=== PATIENT | male | born 1975 | race Caucasian/White ===

== ENCOUNTER 2021-07-07 18:49 | Emergency (ER) | payer MEDICAID, SELFPAY ==
--- NOTE | ~2021-07-07 | XR_ITS ---
EXAMINATION: XR SHOULDER, RIGHT CLINICAL INFORMATION: Pain COMPARISON: None TECHNIQUE: AP external rotation, Grashey, scapular Y, and axillary views of the right shoulder. FINDINGS: Bone alignment is normal. No fracture or dislocation is seen. The glenohumeral joint is normal. There is mild arthritis at the acromioclavicular joint. Soft tissues are unremarkable. XR/XR shoulder RT min 2V IMPRESSION: Mild arthritis at the acromioclavicular joint.
[2021-07-07 19:34] VITALS: BP 154/88; PULSE 81; RESP 16; TEMP 36.1; O2SAT 99; BMI 32.6
== END 2021-07-08 00:25 | disposition left against medical advice (07) ==
PROVIDERS: Emergency Provider Emergency Medicine
DX: M25.511 Pain in right shoulder (principal)
CPT/HCPCS: 73030; 99282; 99283

== ENCOUNTER 2023-01-13 14:05 | Outpatient (REF) | payer MEDICAID, SELFPAY ==
--- NOTE | ~2023-01-13 | XR_ITS ---
EXAMINATION: XR CHEST CLINICAL INFORMATION: Cough, acute bronchitis. COMPARISON: Chest radiographs 11/04/2016, 05/01/2015 TECHNIQUE: 2 views of the chest were obtained. FINDINGS: The lungs are clear. The vascularity is normal. No hyperinflation. No definite coarsening bronchiolar markings or bronchiectasis. The costophrenic sulci are clear. Heart size normal. The hilar and mediastinal contours and bony structures are unremarkable. XR/XR chest 2V IMPRESSION: Lungs clear.
== END 2023-01-13 14:06 | disposition home or self-care (01) ==
LOC: HO.XRAY 14:05
PROVIDERS: Visit Provider Emergency Medicine
DX: R05.9 Cough, unspecified (principal); J20.9 Acute bronchitis, unspecified
CPT/HCPCS: 71046

== ENCOUNTER 2023-11-28 10:29 | Outpatient (AMB) | payer MEDICAID, SELFPAY ==
--- NOTE | 2023-11-28 10:35 | A.OFFVIS_ITS ---
Intake Vital Signs 3 11/28/23 10:37 Height 5 ft 8.5 in Weight 219 lb BMI 32.8 BP 122/78 Blood Pressure Location Lt brachial Position Sitting Respiration 12 Pulse 74 Pulse Source Pulse Oximeter Pulse Oximetry (%) 98 Oxygen Delivery Method Room Air Intake Visit Reasons: chronic low back pain Allergies sulfamethoxazole [From BACTRIM] Allergy (Mild, Verified 11/28/23 10:38) HIVES trimethoprim [From BACTRIM] Allergy (Mild, Verified 11/28/23 10:38) HIVES Medication List - Last Reconciled 11/28/23 by Shonda Zapien LPN acetaminophen 1,000 mg PO Q6H PRN cetirizine 10 mg PO QAM tizanidine 2 mg PO Q6H PRN zolpidem 10 mg PO BEDTIME PRN HPI chronic low back pain 2 HPI0 Details 48-year-old male who presents today to t he office for an evaluation of chronic low back pain. The patient has a longstanding history of low back pain that is ongoing for past five years. It is rated at 6 -7/10 in intensity. His worst pain is in the mid low back towards the right side and down into the right thigh. He has a significant loss of lumbar ROM. He also reports pain radiating into the bilateral lower legs. He has noticed a clicking sound when walking. He is unable to sleep normally or get comfortable at night. He is unable to function normally. He had an MRI scan in 09/2023. He has been managing his pain with Tylenol, tizanidine, and lidocaine patches. He last tried physical therapy in 2018 at [facility]. He is unemployed. He previously worked as a construction/oil field equipment mechanic. [facility] Medical History (Updated 12/02/23 @ 17:12 by Valdemar Savage MD) Elevated blood pressure reading without diagnosis of hypertension BIANCA (obstructive sleep apnea) Insomnia Impaired fasting glucose Hyperlipidemia History of substance abuse Anxiety Review of Systems Const All systems reviewed & are unremarkable except as noted in HPI and below Physical Exam Vital Signs: Last Vital Signs Pulse 74 11/28/23 10:37 Resp 12 11/28/23 10:37 BP 122/78 11/28/23 10:37 Pulse Ox 98 11/28/23 10:37 Oxygen Delivery Method Room Air 11/28/23 10:37 BMI result Body Mass Index 32.8 General: Appears afebrile. Alert and oriented. Mood and affect appropriate. Follows and participates in conversation appropriately. Respiratory effort is unlabored. Able to transition from sit to stand unassisted. Ambulates with bilaterally normal heel strike and toe off. Straight leg raise is positive on the left side He is able to stand on his toes and heels, but standing on his heels reproduces pain in the left lower back. Forward flexion reproduces pain in the lower back Axial rotation reproduces sharp pain in the lower back. Extension is limited and standing up straight is also painful. Results Reviewed Results Reviewed: 10/02/23: MR SPINE LUMBAR WO CONTRAST. There is modic reactive endplate changes seen at the superior and inferior endplate of L5. Inferior endplate is type 2 and superior endplate is type one. Assessment & Plan Assessment & Plan (1) Vertebrogenic low back pain: Code(s): M54.51 - Vertebrogenic low back pain (2) Lumbar radicular pain: Code(s): M54.16 - Radiculopathy, lumbar region Plan Discussed cortisone injections vs. physical therapy vs. BVN ablation (Intracept) procedure as possible treatment options. Will schedule him for a L4-L5-S1 BVN ablation. Discussed the risks and benefits of the procedure with the patient in detail. All questions were answered. The patient is on board with the plan. A procedure brochure was provided to the patient today. Informed the patient that insurance approval is required. We will file a PA for approval and keep him updated. We also discussed a trial of left L4-5 TFESI, but the patient would like to avoid cortisone injections. If possible, we talked about proceeding with an intracept procedure first to relieve his axial low back pain, potentially allowing him to participate in physical therapy for his lumbar radicular symptoms following that procedure to help avoid cortisone injections if possible. Justification for interventional therapy: Patient with average pain > 6/10 Patient has exhausted conservative therapy including oral and topical medications MRI and physical exam findings consistent with a vertebrogenic source of pain Scribed for Dr. Savage by Dwain Mckeon, bio medical technician, on 11/28/2023. I, Dr. Savage, have personally reviewed and agree with the information entered by the scribe. Coding Level of Care Code New Pt Level 4 (67052) Diagnoses Vertebrogenic low back pain M54.51 Lumbar radicular pain M54.16
[2023-11-28 10:37] VITALS: BP 122/78; PULSE 74; RESP 12; O2SAT 98; BMI 32.8
== END 2023-11-28 11:21 | disposition home or self-care (01) ==
PROVIDERS: PCP Registered Nurse; Referring Provider Registered Nurse; Visit Provider Internal Medicine
DX: M54.51 Vertebrogenic low back pain (principal); M54.16 Radiculopathy, lumbar region
CPT/HCPCS: 99204

== ENCOUNTER → 2023-11-28 10:29 | Outpatient (BNVA) | payer MEDICAID, SELFPAY | PROVIDERS: PCP Registered Nurse; Referring Provider Registered Nurse; Visit Provider Internal Medicine | DX: M54.51 Vertebrogenic low back pain (principal); M54.16 Radiculopathy, lumbar region | CPT/HCPCS: 99202 ==

== ENCOUNTER 2025-07-15 22:20 | Emergency (ER) | payer MEDICAID, SELFPAY ==
--- NOTE | ~2025-07-15 | CT_ITS ---
CLINICAL HISTORY: nausea vomiting CT abdomen and pelvis with contrast Comparison: None provided Findings: LIMITED CHEST: Lung bases are clear. LIVER: No focal liver lesion. BILIARY: No gallbladder wall thickening, radiopaque stone, or ductal dilatation. PANCREAS: No mass or ductal dilatation. SPLEEN: No splenomegaly. KIDNEYS: No hydronephrosis or radiopaque stone. ADRENALS: No nodule. VASCULAR: No aneurysm. RETROPERITONEUM: No lymphadenopathy or mass. BOWEL/MESENTERY: No evidence of obstruction. No free fluid or air. Colonic diverticulosis. Normal appendix. ABDOMINAL WALL: No mass or significant abnormality. URINARY BLADDER: Differential thickening of the bladder. PELVIC NODES: No pelvic lymphadenopathy. PELVIC ORGANS: Normal for age. BONES: No acute fracture. OTHER: Negative. IMPRESSION: Circumferential thickening of the bladder, correlate with urinalysis for cystitis. Colonic diverticulosis without CT evidence of acute diverticulitis. This document has been electronically signed by: Gladis Rider MD on 07/16/2025 01:04:11
[2025-07-15 22:26] VITALS: BP 156/73; PULSE 79; RESP 20; TEMP 36.6; O2SAT 95; BMI 31.2
--- OUTSIDE RECORDS SUMMARY | 2025-07-15 22:38 | XMS_ITS ---
Author Organization [employer] Address [address] [place] [address] [address] [place] [address] Care Team Providers Care Fighting Vehicle Infantryman Name Role Phone Becki Arias DONATO Primary Care Provider Pinky Bond Unavailable [facility] Status:Enrolled (Active) Start date:04/04/2025 Enrollment date:04/05/2025 Enrollment reason:Referred by provider Overview SDOH Referral- 49-year-old male recently released from incarceration with housing instability. Case Team Name Relationship Phone Pinky Bond(Responsible Staff) Continued Care and Services Coordination
--- OUTSIDE RECORDS SUMMARY | 2025-07-15 22:38 | XMS_ITS | Clinical Summary ---
Author Organization [facility] it[facility] Address [address] [place] [address] Care Team Providers Care Hr Representative Name Role Phone Unavailable Primary Care Provider Unavailabl e Social History Tobacco Use Types Packs/Day Years Used Date Smoking Tobacco: Never Assessed Sex and Gender Information Value Date Recorded Sex Assigned at Not on file Legal Sex Male 3:59 AM EST Gender Identity Not on file Sexual Orientation Not on file Plan of Treatment Health Maintenance Due Date Last Done Comments DTaP,Tdap,and Td Vaccines (1 - Tdap) 1992 Hepatitis B Vaccines (1 of 3 - 19+ 3-dose series) 1992 Pneumococcal Vaccine: 50+ Ye ars (1 of 1 - PCV) 2023 Zoster Vaccines (1 of 2) 2023 Depression Screening 10/20/2024 COVID-19 Vaccine (1 - 2023-2 5 season) 2025 Influenza Vaccine (#1) 2025 HIB Vaccines Aged Out No longer eligi ble based on patient's age to complete this topic HPV Vaccines Aged Out No longer eligi ble based on patient's age to complete this topic Hepatitis A Vaccines Aged Out No long er eligible based on patient's age to complete this topic IPV Vaccines Aged Out No longer eligi ble based on patient's age to complete this topic MMR Vaccines Aged Out No longer eligi ble based on patient's age to complete this topic Meningococcal ACWY Vaccine Aged Out N o longer eligible based on patient's age to complete this topic Meningococcal B Vaccine Aged Out No l onger eligible based on patient's age to complete this topic RSV Immunization Patients Un mari 20 months Aged Out No longer eligible b ased on patient's age to complete this topic Varicella Vaccines Aged Out No longer eligible based on patient's age to complete this topic
--- OUTSIDE RECORDS SUMMARY | 2025-07-15 22:38 | XMS_ITS | Encounter Summary ---
Author Organization [employer] Address [address] [facility] [address] [place] [address] Care Team Providers Care Contact Center Assistant Name Role Phone [facility] Primary Care Provider [phone] Drea Mansfield [facility] Primary Care Provider [phone] [facility] Primary Care Provider [phone] Pinky Bond Unavailable Reason for Visit * Reason Onset Date Comments Med Refill 08/08/2023 Encounter Details Date Type Department Care Team (Late st Contact Info) Description 08/08/[address] [facility] [address] [place], [place] [phone] [facility] [address] [place], [place] [phone] Primary insomnia Social History Tobacco Use Types Packs/Day Years Used Date Smoking Tobacco: Never Smokeless Tobacco: Never Comments:Hx smoking marijuan a rolled in blunt tobacco paper. Alcohol Use Standard Drinks/Week Comments Not Currently 0 (1 standard drink = 0.6 oz pure alcohol) drinks 750 ml every weekend judi cid Sex and Gender Information Value Date Recorded Sex Assigned at Male 08/19/2022 10:16 AM EDT Legal Sex Male 10:16 AM EDT Gender Identity Male 08/19/2022 10:16 AM EDT Sexual Orientation Straight 08/19/2022 10 :16 AM EDT documented as of this encounter Miscellaneous Notes * Telephone Encounter - Polly Parry LPN - 08/08/2023 10:16 AM EDT OPTICAL INSTRUMENT REPAIRER checked 08/08/23. Last seen 06/02/23. * Telephone Encounter - Mylene Agusto - 08/08/2023 10:12 AM EDT Tc from pt requesting medication refill on zolpidem (Ambien) 10 MG tablet to be sent to [facility] - [place], [place] - [address] [place] [address] documented in this encounter Plan of Treatment Upcoming Encounters Date Type Department Care Team (Late st Contact Info) Description 08/22/2025 1:00 PM EST Office Visit [facility] [address] [place] [address] Becki Arias FNP [address] [place] [address] documented as of this encounter Visit Diagnoses Diagnosis Primary insomnia Persistent disorder of initiating or maintaining sleep documented in this encounter Care Teams Contact Center Assistant Relationship Specialty Start Date End Date [place] [address] PCP - General Family Medicine 06/12/22 08/09/23 Drea Mansfield FNP [address] [place] [address] PCP - General Family Medicine 08/10/23 10/07/23 Becki Arias FNP [address] [place] [address] PCP - General Family Medicine 10/08/23 Pinky Bond 04/04/25 documented as of this encounter
--- OUTSIDE RECORDS SUMMARY | 2025-07-15 22:38 | XMS_ITS | Encounter Summary ---
Author Organization [employer] Address [address] [facility] [address] [place] [address] Care Team Providers Care Machinist Mechanic Name Role Phone [facility] Primary Care Provider [phone] Drea Mansfield [facility] Primary Care Provider [phone] Primary Care Provider [phone] Pinky Bond Unavailable Reason for Visit * Reason Comments Med Refill Encounter Details Date Type Department Care Team (Late Contact Info) Description 08/08/2023 Refill [facility] [address] [place] [address] [phone] Polly Crowe DO [address] [place], [place] [phone] Primary insomnia Social History Tobacco Use Types [...] AM EDT documented as of this encounter Plan of Treatment Upcoming Encounters Date Type Department Care Team (Late Contact Info) Description 08/22/2025 1:00 PM EST Office Visit [facility] [address] [place] [address] Becki Arias FNP [address] [place] [address] documented as of this encounter Visit Diagnoses Diagnosis Primary insomnia Persistent disorder of initiating or maintaining sleep documented in this encounter Care Teams Machinist Mechanic Relationship Specialty Start Date End Date Becki Arias FNP [facility] [place] [address] PCP - General Family Medicine 06/12/22 08/09/23 Drea Mansfield FNP [address] [place] [address] PCP - General Family Medicine 08/10/23 10/07/23 Becki Arias FNP [address] [place] [address] PCP - General Family Medicine 10/08/23 Pinky Bond 04/04/25 documented as of this encounter
--- OUTSIDE RECORDS SUMMARY | 2025-07-15 22:38 | XMS_ITS | Clinical Summary ---
Author Organization [employer] Address [address] [facility] [address] [place] [address] Care Team Providers Care Electrical Systems Engineer Name Role Phone [facility] Primary Care Provider [phone] Pinky Bond Unavailable Allergies Active Allergy Reactions Criticality Noted Date Comments Sulfamethoxazole High 02/15/2014 Other reaction(s): Hives Trimethoprim High 02/15/2014 Other reaction(s): Hives Medications * This document contains information received from the source organization and may not represent a complete record from that organization. naproxen (Naprosyn) 500 MG tablet Take 1 tablet by mouth if needed in the morning and at bedtime for pain. Take with food 05/27/20 22 Active albuterol 108 (90 Base) MCG/ACT inhalerIndicatio ns:Mild intermittent reactive airway disease without complication Inhale 2 puffs every 6 (six) hours if needed for wheezing. 18 g 1 01/14/20 23 Active sodium chloride (Garfield Nasal Marquette) 0.65 % nasal sprayIndications :Cough in adult,Acute bronchitis, unspecified organism 1-2 sprays on each nostril every 2-3 hours as needed for nasal congestion 30 mL 1 01/14/20 23 Active Diclofenac Sodium (Voltaren) 1 % gelIndications:C hronic left-sided low back pain with left-sided sciatica Apply 2 g topically if needed in the morning and at bedtime (muscle pain). 100 g 3 06/02/20 23 Active cetirizine (ZyrTEC) 10 MG tabletIndication s:Acute viral syndrome Take 1 tablet (10 mg) by mouth in the morning. 30 tablet 2 06/02/20 23 Active fluticasone (Flonase Allergy Relief) 50 MCG/ACT nasal spray Administer 2 sprays into each nostril 2 times daily. 16 g 08/11/20 23 Active lidocaine (Lidoderm) 5 % patchIndications :Chronic left-sided low back pain with left-sided sciatica Apply 1 patch topically in the morning. Remove & discard patch within 12 hours or as directed by MD. 30 patch 1 10/01/20 23 Active acetaminophen (Tylenol) 500 MG tablet Take 2 tablets (1,000 mg) by mouth every 6 (six) hours if needed for moderate pain or fever for up to 25 doses. 50 tablet 10/01/20 23 Active Blood Pressure kit 1 each Once daily. Call if BP readings are > 130/80 1 kit 10/01/20 Active tiZANidine (Zanaflex) 2 MG tablet Take 1 tablet (2 mg) by mouth every 6 (six) hours if needed for muscle spasms. 30 tablet 1 11/14/19 24 Active ciclopirox (Penlac) 8 % solutionIndicati ons:Onychomycosi s Apply topically at bedtime. 6 mL 1 04/08/20 25 Active QUEtiapine (SEROquel) 50 MG tabletIndication s:Anxiety TAKE 3 TABLETS BY MOUTH AT BEDTIME 90 tablet 2 07/08/20 25 Active QUEtiapine (SEROquel) 50 MG tabletIndication s:Anxiety Take 3 tablets (150 mg) by mouth at bedtime. 90 tablet 2 03/25/20 25 025 Discontinued Active Problems Problem Noted Date Diagnosed Date RICHA (generalized anxiety disorder) 04/25/2025 Primary hypertension 04/01/2025 Alcohol use disorder 04/01/2025 Chronic bilateral low back pain without sciatica 12/29/2023 Overview (12/29/2023): MRI from 09/2023 with anteriorlisthesis;. Followed by [facility] [place] [place] pain mngmt and PT Elevated blood-pressure read ing without diagnosis of hypertension 09/23/2022 Anxiety 10/23/2021 Insomnia 09/19/2021 Obstructive sleep apnea syndrome 12/22/2014 History of substance abuse 11/18/2013 Hyperlipidemia 11/18/2013 Impaired fasting glucose 11/18/2013 Encounters * This document contains information received from the source organization and may not represent a complete record from that organization. Date Type Department Care Team Description 07/08/2025 Refill [facility] MEDICINE [facility] [place] [address] eBcki Arias, ROOFING FOREMAN Anxiety 07/04/2025 Patient Outreach [address] [address] Becki Arias [facility] Care Coordination ([facility]3 [facility] Bond telephone call outreach) 06/22/[address] [address] CarlyleBecki [facility] Nov recall 05/23/2025 Patient Outreach [address] [address] CarlyleBecki [facility] Care Coordination ([facility]3 [facility] telephone call outreach) 05/05/2025 Patient Outreach [address] [address] HugoBecki [facility] Care Coordination ([facility] telephone call outreach) 04/29/[address] [address] Becki Arias [facility] Medication Question 04/19/2025 Patient Outreach [address] [address] CarlyleBecki [facility] Care Coordination from Last 3 Months Immunizations Immunization Administration Dates Next Due Hep B, adult 02/21/2021,11/29/2020,11/01/2020 Influenza injectable quadriv alent preservative free 08/09/2021,11/29/2020 Influenza, IIV3, injectable 08/27/2022 Influenza, seasonal, injecta ble, preservative free 08/13/2024 Pfizer Covid-19 Vaccine 12+ 08/13/2024,0 12/26/2023,02/20/2022,2020,07/19/2021 Pfizer Covid-19 Vaccine 12+ Bivalent 08/27/2022 Td (adult), 5 Lf tetanus tox oid, preservative free, adsorbed 05/07/2015 Tdap 03/21/2014 Social History Tobacco Use Types Packs/Day Years Used Date Smoking Tobacco: Never Smokeless Tobacco: Never Tobacco Cessation:Counseling Given: Not Answered Comments:Hx smoking marijuana rolled in blunt tobacco paper. Alcohol Use Standard Drinks/Week Comments Not Currently 0 (1 standard drink = 0.6 oz pure alcohol) drinks 750 ml every weekend judi cid Depression Answer Date Recorded Patient Health Questionnaire-9 Score 8 04/25/2025 Patient Health Questionnaire-9 Score 8 04/25/2025 Last PHQ-9: Questionnaire Data Not on file 0 04/25/2025 Housing Stability Answer Date Recorded What is your housing situation today? I have timmyvonda garcia 04/05/[address] you li ve. Do you have problems with any of the following? None of the above 04/05/2025 Food Insecurity Answer Date Recorded Within the past 12 months, y ou worried that your food would run out before you got money to buy more: Sometimes True 2024 Within the past 12 months,th e food you bought just didn't last and you didn't have enough money to get more: Sometimes True 04/05/2025 Transportation Answer Date Recorded In the past 12 months, has l ack of transportation kept you from medical appts, meetings, work or from getting things needed for daily living? No 03/25/2025 Utilities Answer Date Recorded In the past 12 months, has t he electric, gas, oil or water company threatened to shut off services in your home? No 03/25/2025 Depression Answer Date Recorded Patient Health Questionnaire-2 Score 2 04/25/2025 Internet Access Answer Date Recorded Internet Access Q1 Yes 04/05/2025 Internet Access Q2 I do not want or need it 03/20 Sex and Gender Information Value Date Recorded Sex Assigned at Male 08/19/2022 10:16 AM EDT Legal Sex Male 10:16 AM EDT Gender Identity Male 08/19/2022 10:16 AM EDT Sexual Orientation Straight 08/19/2022 10 :16 AM EDT Last Filed Vital Signs Vital Sign Reading Time Taken Comments Blood Pressure 130/86 04/08/2025 11:49 AM EDT Pulse 84 04/08/2025 11:49 AM EDT Temperature 36.2 C (97.1 F) 04/08/2025 11:49 AM EDT Respiratory Rate 20 04/08/2025 11:49 AM EDT Oxygen Saturation 96% 06/22/2024 3:50 PM EDT Inhaled Oxygen Concentration - - Weight 94.5 kg (208 lb 6.4 oz) 04/08/2025 11:49 AM EDT Height 172.7 cm (5' 8 ) 04/08/2025 11:49 AM EDT Body Mass Index 31.69 04/08/2025 11:49 AM EDT Plan of Treatment Upcoming Encounters Date Type Department Care Team (Late st Contact Info) Description 08/22/2025 1:00 PM EST Office Visit [facility] [address] [place] [address] [facility], [facility] [address] [place] [address] Health Maintenance Due Date Last Done Comments CT Colonography 1973 Colonoscopy 1973 Colorectal Cancer Screening 1973 FIT DNA/Cologuard 1973 FIT 1973 FOBT 1973 Sigmoidoscopy 1973 Alcohol/Substance Use Screening 1985 Family Planning (PISQ) 1988 Pneumococcal Vaccine: 50+ Years (1 of 1 - PCV) 2023 Zoster Vaccines (1 of 2) 2023 Influenza Vaccine (#1) 2025 , 08/27/2022, 08/27/2022, Additional history exists SDOH Screening 04/05/2026 04/05/2025 Disability Screening 04/08/2026 04/08/2025 Tobacco Screening 04/10/2026 04/10/2025 Depression Screening 04/25/2026 04/25/2025, 04/25/20 Lipid Panel 09/24/2027 09/24/2022, 1210/2020, 10/27/2020, Additional history exists DTaP/Tdap/Td Vaccines (4 - Td or Tdap) 12/06/2034 12/06/2024, 05/07/2015, 03/21/2014 RSV Patients and Patients Aged 60 years or older (1 - 1-dose 75+ series) 2048 Hepatitis B Vaccines Completed 02/21/2021, 11/29/2020, 11/01/2020 HIV Screening Completed 09/24/2022 Hepatitis C Screening Completed 09/24/2022, 021 COVID-19 Vaccine Completed 08/13/2024, 05/2024, 08/27/2022, Additional history exists HIB Vaccines Aged Out No longer eligi [...] patient's age to complete this topic Meningococcal Vaccine Aged Out No matthew dereje eligible based on patient's age to complete this topic RSV under 20 months Aged Out No longe r eligible based on patient's age to complete this topic Rotavirus Vaccines Aged Out No longer eligible based on patient's age to complete this topic Procedures Procedure Name Priority Date/Time Associated Diagnosis Comments HEPATITIS C AB W/REFL TO HCV RNA, QN, PCR Routine 09/24/2022 1:15 PM EST HIV 1/2 ANTIGEN/ANTIBODY, FOURTH GENERATION W/RFL Routine 09/24/2022 1:15 PM EST LIPID PANEL, STANDARD Routine 09/24/2022 1:15 PM EST from Last 3 Months or Most Recently Relevant to Health Maintenance Results * Hepatitis C Antibody with Reflex to HCV, RNA, Quantitative, Real-Time PCR (09/24/2022 1:15 PM EST) Hepatitis C Antibody NON-REACT PATRICIA NON-REACT PATRICIA [facility] Index 0.06 <1.00 [facility] [place] [facility] Comment: HCV antibody was non-reactive. There is no laboratory evidence of HCV infection. In most cases, no further action is required. However, if recent HCV exposure is suspected, a test for HCV RNA (test code 31398) is suggested. For additional information please refer to http://Mychebao.com.[employer]/faq/DON08y8 (This link is being provided for informational/ educational purposes only.) 09/24/2022 1:15 PM EST 09/24/2022 1:16 PM EST Narrative [facility] - 09/25/2022 9:00 PM EST FASTING:NO FASTING: NO [facility] LAB BLOOD ORDERABLES Final Re sult [facility] [address], [place] [address] [facility] [address], [place] [address] * HIV-1/2 Antigen and Antibodies, Fourth Generation, with Reflexes (09/24/2022 1:15 PM EST) Pathologist [facility] HIV Antigen/Antibody, 4th Generation NON-REAC TIVE NON-REAC TIVE [facility] [place] [facility] Comment: HIV-1 antigen and HIV-1/HIV-2 antibodies were not detected. There is no laboratory evidence of HIV infection. PLEASE NOTE: This information has been disclosed to you from records whose confidentiality may be protected by state law. If your state requires such protection, then the state law prohibits you from making any further disclosure of the information without the specific written consent of the person to whom it pertains, or as otherwise permitted by law. A general authorization for the release of medical or other information is NOT sufficient for this purpose. For additional information please refer to http://[email or web address] Software/faq/AWN797 (This link is being provided for informational/ educational purposes only.) The performance of this assay has not been clinically validated in patients less than 2 years old. 09/24/2022 1:15 PM EST 09/24/2022 1:16 PM EST Narrative [facility] - 09/25/2022 9:00 PM EST FASTING:NO FASTING: NO [facility] LAB BLOOD ORDERABLES Final Re sult Performing Organization Address [facility]/ZIP Co de Phone Number [facility] [address], [place] [address] [facility] [address], [place] [address] * Lipid Panel, Standard (09/24/2022 1:15 PM EST) Cholesterol, Total 128 <200 mg/dL [facility] [place] [facility] HDL Cholesterol 43 > OR = 40 mg/dL [facility] [place] [facility] Triglycerides 82 <150 mg/dL [facility] [place] [facility] LDL Cholesterol 69 mg/dL (calc) [facility] [place] [facility] Comment: Reference range: <100 Desirable range <100 mg/dL for primary prevention; <70 mg/dL for patients with CHD or diabetic patients with > or = 2 CHD risk factors. LDL-C is now calculated using the Raffi calculation, which is a validated novel method providing better accuracy than the Friedewald equation in the estimation of LDL-C. Ernesto MAY et al. GRISELDA. 2013;310(19): 3948-5472 (http://education.ExecNote/faq/BVN635) Chol/HDLC Ratio 3.0 <5.0 (calc) [facility] Non-HDL Cholesterol 85 <130 mg/dL (calc) [facility] [place] [facility] Comment: For patients with diabetes plus 1 major ASCVD risk factor, treating to a non-HDL-C goal of <100 mg/dL (LDL-C of <70 mg/dL) is considered a therapeutic option. 09/24/2022 1:15 PM EST 09/24/2022 1:16 PM EST Narrative [facility] - 09/25/2022 9:00 PM EST FASTING:NO FASTING: NO [facility] LAB BLOOD ORDERABLES Final Re sult Performing Organization Address [facility]/ZIP Co de Phone Number [facility] [address], [place] [address] [facility] [place] [facility] [address], [place] [address] from Last 3 Months or Most Recently Relevant to Health Maintenance Insurance [facility] C3 HSN PARTIAL Care Teams Electrical Systems Engineer Relationship Specialty Start Date End Date Becki Arias FNP [address] [place] [address] PCP - General Family Medicine 10/08/23 Pinky Bond 04/04/25
--- OUTSIDE RECORDS SUMMARY | 2025-07-15 22:38 | XMS_ITS | Encounter Summary ---
Author Organization [employer] Address [address] [facility] 7t [place] [address] Care Team Providers Care Meat Stocker Name Role Phone [facility] Primary Care Provider [phone] Pinky Bond Unavailable Reason for Visit * Reason Onset Date Comments EAEDC Form 07/05/2024 Encounter Details Date Type Department Care Team ([facility] st Contact Info) Description 07/05/2024 Telephone [facility] MEDICINE [address] [place] [address] [facility] [address] [place], [place] [phone] EAEDC Form Social History Tobacco Use Types Packs/Day Years Used Date Smoking Tobacco: Never Smokeless Tobacco: Never Comments:Hx smoking marijuan a rolled in blunt tobacco paper. Alcohol Use Standard Drinks/Week Comments Not Currently 0 (1 standard drink = 0.6 oz pure alcohol) drinks 750 ml every weekend judi cid Depression Answer Date Recorded Patient Health Questionnaire-9 Score 0 12/26/2023 Patient Health Questionnaire-9 Score 0 12/26/2023 Last PHQ-9: Questionnaire Data Not on file 0 12/26/2023 Housing Stability Answer Date Recorded What is your housing situation today? I have timmy garcia 11/10/[address] you li ve. Do you have problems with any of the following? None of the above 11/10/2023 Food Insecurity Answer Date Recorded Within the past 12 months, y ou worried that your food would run out before you got money to buy more: Never True 11/10/2023 Within the past 12 months,th e food you bought just didn't last and you didn't have enough money to get more: Never True Transportation Answer Date Recorded In the past 12 months, has l ack of transportation kept you from medical appts, meetings, work or from getting things needed for daily living? No 11/10/2023 Utilities Answer Date Recorded In the past 12 months, has t he electric, gas, oil or water company threatened to shut off services in your home? No 11/10/2023 Depression Answer Date Recorded Patient Health Questionnaire-2 Score 0 12/26/2023 Sex and Gender Information Value Date Recorded Sex Assigned at Male 08/19/2022 10:16 AM EDT Legal Sex Male 10:16 AM EDT Gender Identity Male 08/19/2022 10:16 AM EDT Sexual Orientation Straight 08/19/2022 10 :16 AM EDT documented as of this encounter Miscellaneous Notes * Telephone Encounter - Jim Sarmiento - 07/05/2024 4:34 PM EDT Tc from pt calling in regards to eaedc form stating he signed it and it was received 11/10/23 but the he was informed the date on the form says 02/09/24. Pt is requesting for the form to be resigned with correct date and re faxed. If any questions you can contact pt at [phone]. documented in this encounter Plan of Treatment Upcoming Encounters Date Type Department Care Team ([facility] st Contact Info) Description 08/22/2025 1:00 PM EST Office Visit [facility] MEDICINE [address] [place] [address] Becki Arias FNP [address] [place] [address] documented as of this encounter Visit Diagnoses Not on filedocumented in this encounter Additional Health Concerns Assessment Noted Time PHQ-9 Depression Total Score: 0 12/26/19 9:32 AM EST documented as of this encounter Care Teams Meat Stocker Relationship Specialty Start Date End Date Becki Arias FNP [address] [place] [id number] PCP - General Family Medicine 10/08/23 Pinky Bond 04/04/25 documented as of this encounter
[2025-07-15 22:39] LABS: MANUAL DIFF FLAG NO
[2025-07-15 22:40] LABS: Hematocrit 49.2 % (42.0-52.0); Hemoglobin 17.5 g/dl (14.0-18.0); Imm Gran Abs Auto 0.03 X10*3/uL (0.00-0.03); Imm Gran Pct Auto 0.3 % (0.0-0.4); Lymphocytes Absolute Auto 1.9 X10*3/uL (1.2-4.9); Mean Corpuscular HGB Conc 35.6 g/dl (31.0-36.0); Mean Corpuscular Hemoglobin 31.6 pg (27.0-33.0); Mean Corpuscular Volume 89.0 fL (80.0-98.0); NRBC Abs Auto 0.000 X10*3/uL (0.0-0.012); NRBC Pct Auto 0.0 /100WBC (0.0-0.2); Platelet Count 226 X10*3/uL (160-400); Red Blood Count 5.53 X10*6/uL (4.60-5.80); White Blood Count 11.1 X10*3/uL (4.8-10.8)
[2025-07-15 22:56] LABS: Alanine Aminotransferase 47 U/L (0-40); Albumin Level 4.8 g/dL (3.5-5.0); Alkaline Phosphatase 73 U/L (39-117); Anion Gap 15 (12-20); Aspartate Amino Transferase 39 U/L (5-37); Blood Urea Nitrogen 22 mg/dL (9-16); Calcium 9.4 mg/dL (8.4-10.2); Carbon Dioxide 28 mmol/L (22-29); Chloride 104 mmol/L (96-108); Creatinine Clr Calc Pharmacy 101.7; Estimated Glomerular Filt Rate > 60; Potassium 4.0 mmol/L (3.3-5.1); Sodium 143 mmol/L (135-145); Total Protein 7.6 g/dL (6.5-8.0)
--- NOTE | 2025-07-15 23:03 | ED_ITS ---
HPI - Nausea/Vomiting/Diarrhea General Chief complaint: Nausea/Vomiting/Diarrhea Stated complaint: Vomiting Time Seen by Provider: 07/15/25 22:44 History of Present Illness HPI Narrative: Patient is a 49-year-old male presents today with having nausea vomiting unable to tolerate p.o. history of umbilical hernia. Surgery was done over 15 years ago. The vomiting started today. There is no diarrhea associated with it there is mild epigastric pain. There is no chest pain there is no shortness of breath there is no diaphoresis there is some upper respiratory symptoms. Last bowel movement was 2 days ago. It was normal. Related Data Home Medications ?Medication ?Instructions ?Recorded ?Confirmed acetaminophen 500 mg tablet 1,000 mg PO Q6H PRN modera te pain 11/28/23 11/28/23 cetirizine 10 mg tablet 10 mg PO QAM 11/28/23 tizanidine 2 mg tablet 2 mg PO Q6H PRN muscle spasm 11/28/23 11/28/23 zolpidem 10 mg tablet 10 mg PO BEDTIME PRN insomni a 11/28/23 11/28/23 Previous Rx's ?Medication ?Instructions ?Recorded ondansetron 4 mg disintegrating 4 mg PO TID PRN nausea and 07/16/25 tablet vomiting 5 days #10 tabs Allergies Allergy/AdvReac Type Severity Reaction Status Date / Time sulfamethoxazole (From Allergy Mild HIVES Verified 07/15/25 22:27 BACTRIM) trimethoprim (From BACTRIM) Allergy Mild HIVES Verified 07/15/25 22:27 Review of Systems 2 Review of Systems: Positive abdominal pain positive nausea vomiting Yes all other systems are reviewed and are negative [facility] Past Medical History Attestation statement: The following information was validated with the patient. Medical History Elevated blood pressure reading without diagnosis of hypertension BIANCA (obstructive sleep apnea) Insomnia Impaired fasting glucose Hyperlipidemia History of substance abuse Anxiety Social History Social History Advance Directives: No Advance Directives Information Provided: No Physical Exam 2 Exam: Exam: Appearance: Alert. Oriented X3. No acute distress. Eyes: Pupils equal, round and reactive to light. ENT: Pharynx normal. Neck: Normal inspection. Neck supple. No lymph nodes noted. No crepitus CVS: Normal heart rate and rhythm. Pulses normal. Normal S1 and S2 Respiratory: No respiratory distress. Breath sounds normal. No Wheezing. No rales Abdomen: Soft and nontender. No rigidity. No distention. good BS x4 Skin: Skin warm and dry. Normal skin color. Normal skin turgor. Extremities: No lower extremity edema. Neurovascular intact to all extremities. No Lacerations. No Rash Neuro: Oriented X 3. No motor deficit. No sensory deficit. Moving all extermities. No slurred speech Vital Signs: Vital Signs: Last Vital Signs Temp 97.7 F 07/16/25 01:47 Pulse 66 07/16/25 01:47 Resp 14 07/16/25 01:47 BP 145/89 H 07/16/25 01:47 Pulse Ox 97 07/16/25 01:47 O2 Del Method Room Air 07/16/25 01:47 BMI result Body Mass Index 31.2 Medications Administered Discontinued Medications Generic Name Dose Route Start Last Admin Trade Name Freq PRN Reason Stop Dose Admin Sodium Chloride 1,000 mls @ 999 mls/hr 07/15/25 23:15 07/16/25 00:34 Ns IV 07/16/25 00:15 Infused .Q1H1M GABY Infusion Sodium Chloride 1,000 mls @ 999 mls/hr 07/15/25 23:15 07/16/25 00:34 Ns IV 07/16/25 00:15 Infused .Q1H1M GABY Infusion Iohexol 85 ml 07/16/25 00:47 07/16/25 00:47 Iohexol 350 Mg/Ml 100 Ml Infus..Btl IV 07/16/25 00:48 85 ml ONCE ONE Administration Ketorolac Tromethamine 15 mg 07/15/25 23:02 07/15/25 23:28 Ketorolac Tromethamine 15 Mg/Ml Vial IVPUSH 07/15/25 23:03 15 mg ONCE ONE Administration Ondansetron HCl 4 mg 07/15/25 23:02 07/15/25 23:28 Ondansetron Hcl 4 Mg/2 Ml Vial IVPUSH 07/15/25 23:03 4 mg ONCE ONE Administration Medical Decision Making Medical Decision Making [facility] Narrative: Patient 49 years old presents today with having vomiting generalized malaise. Had a history of umbilical hernia status post repair history of bowel obstruction in the past. Pain was more epigastric. Last bowel movement was normal [address] scan of the abdomen pelvis was done. My interpretation patient's CT was grossly negative for any acute evidence of obstruction abscess I reviewed radiology's reading which also include a possibility of circumferential thickening in the bladder question UTI. Patient well appearing no acute distress. White count is 11 electrolytes unremarkable patient's LFTs slightly elevated likely secondary to fatty liver troponin was negative my interpretation of patient's EKG showed a sinus rhythm heart rate was 70 MI QRS QTC normal no acute ST segment elevation. Symptoms not consistent with ACS. COVID flu RSV were all negative. In no distress. Given fluids given Zofran for nausea with good relief of symptoms. Currently pending urine if it is negative will discharge home. Urine is negative. No signs of infection. Differential Diagnosis Differential Diagnoses: The differential diagnosis associated with the presentation includes Nausea vomiting, obstruction, UTI, diverticulitis, ACS Admission/Observation Consideration of admission/observation: Escalation of care including admission/observation considered Lab Data MDM Lab Attestation statement: I reviewed the patient's lab results. 07/15/25 22:34 07/15/25 22:34 Labs: Lab Results 07/15/25 07/15/25 07/16/25 Range/Units 22:34 23:17 01:46 WBC 11.1 H (4.8-10.8) X10*3/uL RBC 5.53 (4.60-5.80) X10*6/uL Hgb 17.5 (14.0-18.0) g/dl Hct 49.2 (42.0-52.0) % MCV 89.0 (80.0-98.0) fL MCH 31.6 (27.0-33.0) pg MCHC 35.6 (31.0-36.0) g/dl RDW 12.3 (11.0-16.0) % Plt Count 226 (160-400) X10*3/uL MPV 9.2 L (9.4-12.4) fL Immature Gran % (Auto) 0.3 (0.0-0.4) % Neut % (Auto) 74.9 H (45-73) % Lymph % (Auto) 16.9 L (20-40) % Reeves % (Auto) 7.2 (2-11) % Eos % (Auto) 0.3 (0-4) % Baso % (Auto) 0.4 (0-2) % Lymph # (Auto) 1.9 (1.2-4.9) X10*3/uL Reeves # (Auto) 0.8 (0.1-1.2) X10*3/uL Eos # (Auto) 0.0 (0.0-0.4) X10*3/uL Baso # (Auto) 0.0 (0.0-0.2) X10*3/uL Abs Immat Gran (auto) 0.03 (0.00-0.03) X10*3/uL Absolute Neuts (auto) 8.3 (2.0-8.3) x10*3/uL Absolute Nucleated RBC 0.000 (0.0-0.012) X10*3/uL Nucleated RBC % (auto) 0.0 (0.0-0.2) /100WBC Sodium 143 (135-145) mmol/L Potassium 4.0 (3.3-5.1) mmol/L Chloride 104 (96-108) mmol/L Carbon Dioxide 28 (22-29) mmol/L Anion Gap 15 (12-20) BUN 22 H (9-16) mg/dL Creatinine 0.95 (0.5-1.4) mg/dL Estim Creat Clear Calc 101.7 Estimated GFR > 60 Random Glucose 139 H (60-115) mg/dL Calcium 9.4 (8.4-10.2) mg/dL Total Bilirubin 1.0 (0.0-1.0) mg/dL AST 39 H (5-37) U/L ALT 47 H (0-40) U/L Alkaline Phosphatase 73 (39-117) U/L Troponin I High Sens < 2.7 (<3.5-35.0) ng/L Total Protein 7.6 (6.5-8.0) g/dL Albumin 4.8 (3.5-5.0) g/dL Urine Color Yellow Urine Appearance Clear Urine pH 6.0 (5.0-9.0) Ur Specific [place] >= 1.030 H (1.005-1.025) Urine Protein 30 (1+) H (Neg-Trace) mg/dL Urine Glucose (UA) Negative (Negative) mg/dL Urine Ketones Negative (Negative) mg/dL Urine Blood Negative (Negative) Urine Nitrite Negative (Negative) Ur Leukocyte Esterase Negative (Negative) Influenza Type A (PCR) NEGATIVE (Negative) Influenza Type B (PCR) NEGATIVE (Negative) RSV RNA Qual (PCR) NEGATIVE (Negative) SARS-CoV-2 RNA (RT-PCR) NEGATIVE (Negative) Independent Interpretation I performed an independent interpretation of an: CT Scan (No obstruction no abscess no perforation) Radiology Impression Discussion of test interpretation with radiology: I have reviewed the radiologist's reading. External Record Review External record reviewed: Outpatient record (Outpatient pain management note reviewed) Social Determinants Patient?s care significantly limited by Social Determinants of Health including: Problems related to primary support group Discharge Plan Discharge Clinical Impression: Nausea & vomiting Patient Disposition: Home, Self-Care Instructions: Acute Nausea and Vomiting (DC), Acute Abdominal Pain (ED) Prescriptions: New ondansetron 4 mg tablet,disintegrating 4 mg PO TID PRN (Reason: nausea and vomiting) 5 Days Qty: 10 0RF No Action tizanidine 2 mg tablet 2 mg PO Q6H PRN (Reason: muscle spasm) acetaminophen 500 mg tablet 1,000 mg PO Q6H PRN (Reason: moderate pain) cetirizine 10 mg tablet 10 mg PO QAM zolpidem 10 mg tablet 10 mg PO BEDTIME PRN (Reason: insomnia) Referrals: HugoBecki dobbs, [employer] [Primary Care Provider, Medical] - 07/19/25 Print Language: Syriac
--- NOTE | 2025-07-15 23:15 | ECG_ITS ---
Test Reason : CO Blood Pressure : */* mmHG Vent. Rate : 75 BPM Atrial Rate : 75 BPM P-R Int : 202 ms QRS Dur : 84 ms QT Int : 366 ms P-R-T Axes : 51 14 41 degrees QTcB Int : 408 ms Normal sinus rhythm Normal ECG When compared with ECG of 30-Apr-2015 23:41, No significant change was found Referred By: Flor Coronado Electronically Signed By: Bg Diego
[2025-07-15 23:17] VITALS: BP 137/90; PULSE 78; RESP 16; TEMP 36.8; O2SAT 94
[2025-07-15 23:40] LABS: Troponin-I High Sensitivity < 2.7 ng/L (<3.5-35.0)
[2025-07-16 00:07] LABS: Resp Syncy Virus RNA Qual PCR NEGATIVE (Negative); SARS COV2 PCR INHOUSE NEGATIVE (Negative)
[2025-07-16] MEDS: iohexoL 350 MG/ML 100 ML INFUS..BTL 85 ML IV (00:47)
[2025-07-16 01:47] VITALS: BP 145/89; PULSE 66; RESP 14; TEMP 36.5; O2SAT 97
[2025-07-16 01:53] LABS: Appearance Urine Clear; Glucose Urine UA Negative (Negative); PH 6.0 (5.0-9.0); Specific Gravity - Urine >= 1.030 (1.005-1.025); UMIC TRIGGER UACC YES
[2025-07-16 02:16] VITALS: BP 145/89; PULSE 66; RESP 14; TEMP 36.5; O2SAT 97
== END 2025-07-16 02:16 | disposition home or self-care (01) ==
PROVIDERS: Emergency Provider Emergency Medicine Emergency Medical Services; PCP Registered Nurse
DX: R11.2 Nausea with vomiting, unspecified (principal); R53.81 Other malaise; R10.9 Unspecified abdominal pain; Z79.899 Other long term (current) drug therapy
CPT/HCPCS: 36415; 74177; 80053; 81001; 84484; 85025; 87637; 93005; 96361; 96375; 99284; 99285; J1885; J2405; Q9967

== ENCOUNTER → 2025-07-15 23:15 | Outpatient (BNV) | payer MEDICAID, SELFPAY | PROVIDERS: Emergency Provider Emergency Medicine Emergency Medical Services; PCP Registered Nurse; Visit Provider Internal Medicine Cardiovascular Disease | DX: R07.9 Chest pain, unspecified (principal) | CPT/HCPCS: 93010 ==

== ENCOUNTER → 2025-07-16 00:01 | Outpatient (BNV) | payer MEDICAID, SELFPAY | PROVIDERS: Emergency Provider Emergency Medicine Emergency Medical Services; PCP Registered Nurse; Visit Provider Student in an Organized Health Care Education/Training Program | DX: K57.30 Diverticulosis of large intestine without perforation or abscess without bleeding (principal); N32.89 Other specified disorders of bladder | CPT/HCPCS: 74177 ==

== ENCOUNTER 2025-09-14 15:40 | Outpatient (REF) | payer MEDICAID, SELFPAY ==
--- OUTSIDE RECORDS SUMMARY | 2025-09-14 14:45 | XMS_ITS | Encounter Summary ---
Author Organization [employer] Address [address] [facility] [address] [place] [address] Care Team Providers Care Door Cutter Name Role Phone [facility] Primary Care Provider [phone] Reason for Visit * Reason Comments Follow-up Encounter Details Date Type Department Care Team ([facility] Contact Info) Description 09/14/2025 2:45 PM EST Office Visit [facility] [address] [place], [place] [phone] [facility] [address] [place] [address] Encounter for immunization Social History Tobacco Use Types Packs/Day Years Used Date Smoking Tobacco: Never Smokeless Tobacco: Never Tobacco Cessation:Counseling Given: Not Answered Comments:Hx smoking marijuana rolled in blunt tobacco paper. Alcohol Use Standard Drinks/Week Comments Not Currently 0 (1 standard drink = 0.6 oz pure alcohol) drinks 750 ml every weekend judi cid Depression Answer Date Recorded Patient Health Questionnaire-9 Score 8 09/14/2025 Patient Health Questionnaire-9 Score 8 09/14/2025 Last PHQ-9: Questionnaire Data Not on file 1 11/14/2024 Housing Stability Answer Date Recorded What is your housing situation today? I have timmy garcia 04/05/[address] you [...] Date Recorded Patient Health Questionnaire-2 Score 2 09/14/2025 Internet Access Answer Date Recorded Internet Access Q1 Yes 04/05/2025 Internet Access Q2 I do not want or need it 03/20 Sex and Gender Information Value Date Recorded Sex Assigned at Male 08/19/2022 10:16 AM EDT Legal Sex Male 10:16 AM EDT Gender Identity Male 08/19/2022 10:16 AM EDT Sexual Orientation Straight 08/19/2022 10 :16 AM EDT documented as of this encounter Last Filed Vital Signs Vital Sign Reading Time Taken Comments Blood Pressure 126/86 09/14/2025 2:37 PM EST Pulse 78 09/14/2025 2:37 PM EST Temperature 36.2 C (97.2 F) 09/14/2025 2:37 PM EST Respiratory Rate 20 09/14/2025 2:37 PM EST Oxygen Saturation - - Inhaled Oxygen Concentration - - Weight 94.8 kg (209 lb) 09/14/2025 2:37 PM EST Height 172.7 cm (5' 8 ) 09/14/2025 2:37 PM EST Body Mass Index 31.78 09/14/2025 2:37 PM EST documented in this encounter Functional Status * Over the past 2 weeks, how often have you been bothered by any of the following problems? Question Answer Date of Assessment Author Patient Health Questionnaire-2 Score 2 09/14/2025 2:46 PM EST Maria Luisa Starr MA * Little interest or pleasure in doing things Answer Date of Assessment Author Several days 09/14/2025 2:46 PM EST Maria Luisa Santoyo MA * Feeling down, depressed, or hopeless Answer Date of Assessment Author Several days 09/14/2025 2:46 PM EST Maria Luisa Santoyo MA * Trouble falling or staying asleep, or sleeping too much Answer Date of Assessment Author Several days 09/14/2025 2:46 PM Maria Luisa Snell MA * Feeling tired or having little energy Answer Date of Assessment Author Several days 09/14/2025 2:46 PM Maria Luisa Snell MA * Poor appetite or overeating Answer Date of Assessment Author Several days 09/14/2025 2:46 PM Maria Luisa Snell MA * Feeling bad about yourself - or that you are a failure or have let yourself or your family down Answer Date of Assessment Author Several days 09/14/2025 2:46 PM Maria Luisa Snell MA * Trouble concentrating on things, such as reading the newspaper or watching television Answer Date of Assessment Author Several days 09/14/2025 2:46 PM Maria Luisa Snell MA * Moving or speaking so slowly that other people could have noticed? Or the opposite - being so fidgety or restless that you have been moving around a lot more than usual. Answer Date of Assessment Author Several days 09/14/2025 2:46 PM Maria Luisa Snell MA * Thoughts that you would be better off or hurting yourself in some way Answer Date of Assessment Author Not at all 09/14/2025 2:46 PM Maria Luisa Snell MA * Patient Health Questionnaire-9 Score Answer Date of Assessment Author 8 09/14/2025 2:46 PM Maria Luisa Snell MA * How difficult have these problems made it for you to do your work, take care of things at home, or get along with other people? Answer Date of Assessment Author Somewhat difficult 09/14/2025 2:46 PM EST Maria Luisa Mortaaya MA documented as of this encounter Plan of Treatment Not on file documented as of this encounter Visit Diagnoses Diagnosis Encounter for immunization documented in this encounter Additional Health Concerns Assessment Noted Time PHQ-9 Depression Total Score: 8 09/14/20 2:46 PM EST documented as of this encounter Care Teams Door Cutter Relationship Specialty Start Date End Date Becki Arias FNP [address] [place] [id number] PCP - General Family Medicine 10/08/23 documented as of this encounter
--- OUTSIDE RECORDS SUMMARY | 2025-09-14 17:48 | XMS_ITS | Encounter Summary ---
Author Organization [employer] Address [address] [facility] [address] [place] [address] Care Team Providers Care Partner Cco Name Role Phone [facility] Primary Care Provider [phone] Pinky Bond Unavailable Reason for Visit * Reason Onset Date Comments EAEDC Form 07/05/2024 Encounter Details Date Type Department Care Team ([facility] st Contact Info) Description 07/05/2024 Telephone [facility] [address] [place] [address] [facility] [address] [place], [place] [phone] EAEDC Form Social History Tobacco Use Types [...] any questions you can contact pt at [phone]. documented in this encounter Plan of Treatment Not on file documented as of this encounter Visit Diagnoses Not on filedocumented in this encounter Additional Health Concerns Assessment Noted Time PHQ-9 Depression Total Score: 0 12/26/19 9:32 AM EST documented as of this encounter Care Teams Partner Cco Relationship Specialty Start Date End Date Becki Arias FNP [address] [place] [id number] PCP - General Family Medicine 10/08/23 Pinky Bond 04/04/25 08/30/25 documented as of this encounter
--- OUTSIDE RECORDS SUMMARY | 2025-09-14 17:48 | XMS_ITS | Encounter Summary ---
Author Organization [employer] Address [address] [facility] [address] [place] [address] Care Team Providers Care Board Machine Set Up Operator Name Role Phone [facility] Primary Care Provider [phone] Drea Mansfield [facility] Primary Care Provider [phone] [facility] Primary Care Provider [phone] Pinky Bond Unavailable Reason for Visit * Reason Onset Date Comments Med Refill 08/08/2023 Encounter Details Date Type Department Care Team (Late st Contact Info) Description 08/08/2023 Refill [facility] [address] [place], [place] [phone] [facility] [address] [place], [place] [phone] Primary insomnia Social History Tobacco Use Types [...] Parry LPN - 08/08/2023 10:16 AM EDT [employer] MA[employer]GER checked 08/08/23. Last seen 06/02/23. * Telephone Encounter - Mylene Liz - 08/08/2023 10:12 AM EDT Tc from pt requesting medication refill on zolpidem (Ambien) 10 MG tablet to be sent to [facility] - [place], [place] - [address] [facility] documented in this encounter Plan of Treatment Not on file documented as of this encounter Visit Diagnoses Diagnosis Primary insomnia Persistent disorder of initiating or maintaining sleep documented in this encounter Care Teams Board Machine Set Up Operator Relationship Specialty Start Date End Date HugoBecki dobbs FNP [address] [place] [address] PCP - General Family Medicine 06/12/22 08/09/23 Drea Mansfield FNP [address] [place] [address] PCP - General Family Medicine 08/10/23 10/07/23 WorcesterBecki FNP [address] [place] [address] PCP - General Family Medicine 10/08/23 Pinky Bond 04/04/25 08/30/25 documented as of this encounter
--- OUTSIDE RECORDS SUMMARY | 2025-09-14 17:48 | XMS_ITS | Clinical Summary ---
Author Organization [employer] Address [address] [place] [address] Care Team Providers Care Dental Tech Name Role Phone [facility] Primary Care Provider [phone] Allergies Active Allergy Reactions Criticality Noted Date [...] at bedtime for pain. Take with food 2 Active albuterol 108 (90 Base) MCG/ACT inhalerIndication s:Mild intermittent reactive airway disease without complication Inhale 2 puffs every 6 (six) hours if needed for wheezing. 18 g 1 3 Active sodium chloride ([place] Nasal [place]) 0.65 % nasal sprayIndications: Cough in adult,Acute bronchitis, unspecified organism 1-2 sprays on each nostril every 2-3 hours as needed for nasal congestion 30 mL 1 3 Active Diclofenac Sodium (Voltaren) 1 % gelIndications:Ch ronic left-sided low back pain with left-sided sciatica Apply 2 g topically if needed in the morning and at bedtime (muscle pain). 100 g 3 3 Active cetirizine (ZyrTEC) 10 MG tabletIndications :Acute viral syndrome Take 1 tablet (10 mg) by mouth in the morning. 30 tablet 2 3 Active fluticasone (Flonase Allergy Relief) 50 MCG/ACT nasal spray Administer 2 sprays into each nostril 2 times daily. 16 g 3 Active lidocaine (Lidoderm) 5 % patchIndications: Chronic left-sided low back pain with left-sided sciatica Apply 1 patch topically in the morning. Remove & discard patch within 12 hours or as directed by MD. 30 patch 1 3 Active acetaminophen (Tylenol) 500 MG tablet Take 2 tablets (1,000 mg) by mouth every 6 (six) hours if needed for moderate pain or fever for up to 25 doses. 50 tablet 3 Active Blood Pressure kit 1 each Once daily. Call if BP readings are > 130/80 1 kit 3 Active tiZANidine (Zanaflex) 2 MG tablet Take 1 tablet (2 mg) by mouth every 6 (six) hours if needed for muscle spasms. 30 tablet 1 4 Active ciclopirox (Penlac) 8 % solutionIndicatio ns:Onychomycosis Apply topically at bedtime. 6 mL 1 5 Active QUEtiapine (SEROquel) 50 MG tabletIndications :Anxiety TAKE 3 TABLETS BY MOUTH AT BEDTIME 90 tablet 2 5 Active Active Problems Problem Noted Date Diagnosed Date RICHA (generalized anxiety disorder) 04/25/2025 Primary hypertension 04/01/2025 Alcohol use disorder 04/01/2025 Chronic bilateral low back pain without sciatica 12/29/2023 Overview (12/29/2023): MRI from 09/2023 with anteriorlisthesis;. Followed by [facility] pain mngmt and PT Elevated blood-pressure read ing without diagnosis of hypertension 09/23/2022 Anxiety 10/23/2021 Insomnia 09/19/2021 Obstructive sleep apnea syndrome 12/22/2014 History of substance abuse (CMS/[facility]) 11/18/2013 Hyperlipidemia 11/18/2013 Impaired fasting glucose 11/18/2013 Encounters Date Type Department Care Team Description 09/14/2025 2:45 PM EST Office Visit [facility] [address] [place] [address] [place], [facility] Encounter for immunization 09/14/2025 Travel 09/13/2025 Telephone [facility] [place] [address] Becki Arias FNP CHART PREP 08/30/2025 Patient Outreach [facility] [place] [address] Becki Arias FNP Care Coordination (C3 -[facility] Pinky Bond telephone call outreach) 08/12/2025 Patient Outreach [facility] [place] [address] Becki Arias FNP Pre-visit Planning (Pre-visit planning - LVM ) 07/20/[address] [address] Becki Arias FNP Med Refill 07/16/2025 Orders Only GENERIC EXTERNAL DATA DEPARTMENT Provider, Generic External Data 07/15/2025 Orders Only GENERIC EXTERNAL DATA DEPARTMENT Provider, Generic External Data 07/08/2025 Refill [facility] [place] [address] Becki Arias FNP Anxiety 07/04/2025 Patient Outreach [facility] [place] [address] Becki Arias FNP Care Coordination (C3 [facility] Pinky Bond telephone call outreach) 06/22/2025 Telephone [facility] [place] [address] Becki Arias FNP Nov recall from Last 3 Months Immunizations Immunization Administration Dates Next Due Hep B, adult 02/21/2021,11/29/2020,11/01/2020 Influenza injectable quadriv alent preservative free 08/09/2021,11/29/2020 Influenza, IIV3, injectable 08/27/2022 Influenza, seasonal, injecta ble, preservative free 09/14/2025,08/13/2024 Pfizer Covid-19 Vaccine 12+ 09/14/2025,1 ,12/26/2023,2021,08/09/2021,07/19/2021 Pfizer Covid-19 Vaccine 12+ Bivalent 08/27/2022 Pneumococcal Conjugate PCV 20 09/14/2025 Td (adult), 5 Lf tetanus tox oid, [...] 20 09/14/2025 2:37 PM EST Oxygen Saturation 96% 06/22/2024 3:50 PM EDT Inhaled Oxygen Concentration - - Weight 94.8 kg (209 lb) 09/14/2025 2:37 PM EST Height 172.7 cm (5' 8 ) 09/14/2025 2:37 PM EST Body Mass Index 31.78 09/14/2025 2:37 PM EST Plan of Treatment Health Maintenance Due Date Last Done Comments CT Colonography 1975 Colonoscopy 1973 Colorectal Cancer Screening 1973 FIT DNA/Cologuard 1973 FIT 1973 FOBT 1973 Sigmoidoscopy 1973 Alcohol/Substance Use Screening 1985 Family Planning (PISQ) 1988 Zoster Vaccines (1 of 2) 2023 SDOH Screening 04/05/2026 04/05/2025 Disability Screening 04/08/2026 04/08/2025 Depression Screening 09/14/2026 09/14/2025, 09/14/20 Tobacco Screening 09/14/2026 09/14/2025 Lipid Panel 09/24/2027 09/24/2022, 1210/2020, 10/27/2020, Additional history exists DTaP/Tdap/Td Vaccines (4 - Td or Tdap) 12/06/2034 12/06/2024, 05/07/2015, 03/21/2014 RSV Patients and Patients Aged 60 years or older (1 - 1-dose 75+ series) 2048 Hepatitis B Vaccines Completed 02/21/2021, 11/29/2020, 11/01/2020 HIV Screening Completed 09/24/2022 Hepatitis C Screening Completed 09/24/2022, 021 COVID-19 Vaccine Completed 09/14/2025, , 12/26/2023, Additional history exists Influenza Vaccine Completed 09/14/2025, , 08/27/2022, Additional history exists Pneumococcal Vaccine: 50+ Years Completed 09/14/2025 HIB Vaccines Aged Out No longer eligi [...] Procedure Name Priority Date/Time Associated Diagnosis Comments URINALYSIS, COMPLETE, WITH REFLEX TO CULTURE Routine 07/16/2025 1:[address] ABDOMEN PELVIS W CONTRAST Routine 07/16/2025 1:04 AM EDT SARS COV2/INFLUENZA A/B AND RSV RNA QL NAAT Routine 07/15/2025 11:17 PM EDT HIGH SENSITIVITY TROPONIN I Routine 07/15/2025 10:34 PM EDT COMPREHENSIVE METABOLIC PANEL Routine 07/15/2025 10:34 PM EDT CBC WITH AUTO DIFFERENTIAL Routine 07/15/2025 10:34 PM EDT HEPATITIS C AB W/REFL TO HCV RNA, QN, PCR Routine 09/24/2022 1:15 PM EST HIV 1/2 ANTIGEN/ANTIBODY, FOURTH GENERATION W/RFL Routine 09/24/2022 1:15 PM EST LIPID PANEL, STANDARD Routine 09/24/2022 1:15 PM EST from Last 3 Months or Most Recently Relevant to Health Maintenance Results * (ABNORMAL) Urinalysis, Complete, with Reflex to Culture (07/16/2025 1:46 AM EDT) Color Urine Yellow [facility] Appearance Urine Clear [facility] PH 6.0 5.0 - 9.0 [facility] Glucose Urine UA Negative Negative mg/dL [facility] Urine Blood Negative Negative [facility] Specific [place] - Urine >=1.030(H) 1.005 - 1.025 [facility] Urine Protein 30 (1+)(A) Neg-Trace mg/dL [facility] Urine Ketones Negative Negative mg/dL [facility] Nitrite Urine Negative Negative [facility] Leukocyte Esterase Urine Negative Negative [facility] RBC Urine 0-2 0 - 2 /HPF [facility] Urine WBC 0-5 0 - 5 /HPF [facility] Urine Squamous Epithelial Cell 0-2 0 - 2 /HPF [facility] Urine Bacteria None Seen None Seen [facility] Hyaline Casts, Urine 0-2 0 - 2 /LPF [facility] 07/16/2025 1:46 AM EDT 07/16/2025 1:51 AM EDT Narrative [facility] - 07/16/2025 2:02 AM EDT [id number], Clean Catch us Generic External Data Provider LAB URINE ORDERAB LES Final Result Performing Organization Address City/State/[facility] Co de Phone Number [facility] [address] [place] [phone] * CT Abdomen Pelvis w/ Contrast (07/16/2025 1:04 AM EDT) Anatomical Region Laterality Modality Body, Pelvis, Abdomen Computed T omography 07/16/2025 1:04 AM EDT Narrative 07/16/2025 1:05 AM EDT [address] [address] [address] Scan Report Signed Patient: Isauro Dudley MR#: [id number] : 1975 Acct:[id number] Age/Sex: 49 / M ADM Date: 07/15/25 Loc: HO.ED Attending Dr: Ordering Physician: Flor Coronado MD Date of Service: 07/16/25 Procedure(s): CT abdomen pelvis w IV con Accession Number(s): [id number] cc: Flor Coronado MD; [facility] Report Number: [id number]: Total DLP = 599.00 mGy-cm Reason for Exam: nausea vomiting CLINICAL HISTORY: nausea vomiting CT abdomen and pelvis with contrast Comparison: None provided Findings: LIMITED CHEST: Lung bases are clear. LIVER: No focal liver lesion. BILIARY: No gallbladder wall thickening, radiopaque stone, or ductal dilatation. PANCREAS: No mass or ductal dilatation. SPLEEN: No splenomegaly. KIDNEYS: No hydronephrosis or radiopaque stone. ADRENALS: No nodule. VASCULAR: No aneurysm. RETROPERITONEUM: No lymphadenopathy or mass. BOWEL/MESENTERY: No evidence of obstruction. No free fluid or air. Colonic diverticulosis. Normal appendix. ABDOMINAL WALL: No mass or significant abnormality. URINARY BLADDER: Differential thickening of the bladder. PELVIC NODES: No pelvic lymphadenopathy. PELVIC ORGANS: Normal for age. BONES: No acute fracture. OTHER: Negative. IMPRESSION: Circumferential thickening of the bladder, correlate with urinalysis for cystitis. Colonic diverticulosis without CT evidence of acute diverticulitis. This document has been electronically signed by: Gladis Rider MD on 07/16/2025 01:04:11 Dictated By: Gladis Rider MD Signed By: <Electronically signed by Gladis Rider MD in OV> 07/16/25104 DD/ 3 TD/TT: 07/16/25103 Assistant Golf Course Superintendent: Procedure Note Donotuseinterpreter, Image - 07/16/[address] [address] [address] Scan Report Signed Patient: Cuca Dudley#: [id number] : 1975Acct:[id number] Age/Sex: 49 / MADM Date: 07/15/25 Loc: HO.ED Attending Dr: Ordering Physician: Flor Coronado MD Date of Service: 07/16/25 Procedure(s): CT abdomen pelvis w IV con Accession Number(s): [id number] cc: Flor Coronado MD; [facility] Report Number: [id number]: Total DLP = 599.00 mGy-cm Reason for Exam: nausea vomiting CLINICAL HISTORY: nausea vomiting CT abdomen and pelvis with contrast Comparison: None provided Findings: LIMITED CHEST: Lung bases are clear. LIVER: No focal liver lesion. BILIARY: No gallbladder wall thickening, radiopaque stone, or ductal dilatation. PANCREAS: No mass or ductal dilatation. SPLEEN: No splenomegaly. KIDNEYS: No hydronephrosis or radiopaque stone. ADRENALS: No nodule. VASCULAR: No aneurysm. RETROPERITONEUM: No lymphadenopathy or mass. BOWEL/MESENTERY: No evidence of obstruction. No free fluid or air. Colonic diverticulosis. Normal appendix. ABDOMINAL WALL: No mass or significant abnormality. URINARY BLADDER: Differential thickening of the bladder. PELVIC NODES: No pelvic lymphadenopathy. PELVIC ORGANS: Normal for age. BONES: No acute fracture. OTHER: Negative. IMPRESSION: Circumferential thickening of the bladder, correlate with urinalysis for cystitis. Colonic diverticulosis without CT evidence of acute diverticulitis. This document has been electronically signed by: Gladis Rider MD on 07/16/2025 01:04:11 Dictated By: Gladis Rider MD Signed By: <Electronically signed by Gladis Rider MD in OV> 07/16/25104 DD/ 3 TD/TT: 07/16/25103 Assistant Golf Course Superintendent: [facility] External Provider IMG CT PROCEDURES Final Result * SARS-CoV-2 RNA, Influenza A/B, and RSV RNA, Ql NAAT (07/15/2025 11:17 PM EDT) Influenza A PCR NEGATIVE Negative [facility] Influenza B PCR NEGATIVE Negative [facility] Resp Syncy Virus RNA Qual PCR NEGATIVE Negative [facility] SARS COV2 PCR NEGATIVE Negative [facility] Comment:All test results mus t be correlated with clinical findings.Negative results do not preclude SARS-CoV2, influenza Avirus, influenza B virus and/or RSV infectionand should not be used as the sole basis for treatment orother patient management decisions. Negative results must becombined with clinical observations, patient history, andepidemiological information.This test has not been evaluated for monitoring treatment ofinfection.This test has been authorized by the FDA under an EmergencyUse Authorization (EUA) for use by authorized laboratories.Testing performed on the [employer] GeneXpert utilizingreal-time RT-PCR.All SARS CoV2 and positive influenza A/B results arereported to [facility]. 07/15/2025 11:1 7 PM EDT 07/15/2025 11:27 PM EDT Generic External Data Provider LAB MICROBIOLOGY - GENERAL ORDERABLES Final Result Performing Organization Address [facility] de Phone Number [facility] [address] [place] [phone] * High Sensitivity Troponin I (07/15/2025 10:34 PM EDT) [facility] TROPONIN I HIGH SENSITIVITY <2.7 <3.5 - 35.0 ng/L [facility] Comment:The Gallegos high sens itivity Troponin-I results should beused in conjunction with other diagnostic information suchas ECG, clinical observations and information, and patientsymptoms to aid in the diagnosis of LA. 07/15/2025 10:3 4 PM EDT 07/15/2025 11:17 PM EDT Generic External Data Provider LAB BLOOD ORDERAB LES Final Result Performing Organization Address [facility] Co de Phone Number [facility] [address] [place] [phone] * (ABNORMAL) CBC auto differential (07/15/2025 10:34 PM EDT) [facility] White Blood Count 11.1(H) 4.8 - 10.8 X10*3/uL [facility] Red Blood Count 5.53 4.60 - 5.80 X10*6/uL [facility] Hemoglobin 17.5 14.0 - 18.0 g/dl [facility] Hematocrit 49.2 42.0 - 52.0 % [facility] Mean Corpuscular Volume 89.0 80.0 - 98.0 fL [facility] Mean Corpuscular Hemoglobin 31.6 27.0 - 33.0 pg [facility] Mean Corpuscular HGB Conc 35.6 31.0 - 36.0 g/dl [facility] Red Cell Distribution Width 12.3 11.0 - 16.0 % [facility] Platelet Count 226 160 - 400 X10*3/uL [facility] Mean Platelet Volume 9.2(L) 9.4 - 12.4 fL [facility] Neutrophils Percent Auto 74.9(H) 45 - 73 % [facility] Imm Gran Pct Auto 0.3 0.0 - 0.4 % [facility] Lymphocytes Percent Auto 16.9(L) 20 - 40 % [facility] Monocytes Percent Auto 7.2 2 - 11 % [facility] Eosinophils Percent Auto 0.3 0 - 4 % [facility] Basophils Percent Auto 0.4 0 - 2 % [facility] NRBC Pct Auto 0.0 0.0 - 0.2 /100WBC [facility] Neutrophils Absolute Auto 8.3 2.0 - 8.3 x10*3/uL [facility] Imm Gran Abs Auto 0.03 0.00 - 0.03 X10*3/uL [facility] Lymphocytes Absolute Auto 1.9 1.2 - 4.9 X10*3/uL [facility] Monocytes Absolute Auto 0.8 0.1 - 1.2 X10*3/uL [facility] Eosinophils Absolute Auto 0.0 0.0 - 0.4 X10*3/uL [facility] Basophils Absolute Auto 0.0 0.0 - 0.2 X10*3/uL [facility] NRBC Abs Auto 0.000 0.0 - 0.012 X10*3/uL [facility] 07/15/2025 10:3 4 PM EDT 07/15/2025 10:37 PM EDT us Generic External Data Provider LAB BLOOD ORDERAB LES Final Result [facility] [address] [place] [phone] * (ABNORMAL) Comprehensive Metabolic Panel (07/15/2025 10:34 PM EDT) Sodium 143 135 - 145 mmol/L [facility] Potassium 4.0 3.3 - 5.1 mmol/L [facility] Chloride 104 96 - 108 mmol/L [facility] Carbon Dioxide 28 22 - 29 mmol/L [facility] Anion Gap 15 12 - 20 [facility] Urea Nitrogen (BUN) 22(H) 9 - 16 mg/dL [facility] Creatinine, Serum 0.95 0.5 - 1.4 mg/dL [facility] Creatinine Clr Calc Pharmacy 101.7 [facility] Comment:eGFR (calculated fro m the MDRD study equation) and eCrCl(calculated from the Cockcroft-Gault equation) are based ondifferent parameters and may not yield comparable results.If eCrCl result is absurd, please check patient'sheight/weight. Estimated Glomerular Filt Rate >60 [facility] Comment:Chronic Kidney Disea se: Estimated GFR < 60 mL/min/1.82l6Pbufsq Kidney Disease: Estimated GFR < 15 mL/min/1.73m2 Glucose 139(H) 60 - 115 mg/dL [facility] Calcium 9.4 8.4 - 10.2 mg/dL [facility] Bilirubin, Total 1.0 0.0 - 1.0 mg/dL [facility] Aspartate Amino Transferase 39(H) 5 - 37 U/L [facility] Alanine Aminotransferase 47(H) 0 - 40 U/L [facility] Total Protein 7.6 6.5 - 8.0 g/dL [facility] Albumin Level 4.8 3.5 - 5.0 g/dL [facility] Alkaline Phosphatase 73 39 - 117 U/L [facility] 07/15/2025 10:3 4 PM EDT 07/15/2025 10:37 PM EDT Generic External Data Provider LAB BLOOD ORDERAB LES Final Result [facility] [address] [place] [phone] * Hepatitis C Antibody with Reflex to HCV, RNA, Quantitative, Real-Time PCR (09/24/2022 1:15 PM EST) Hepatitis C Antibody NON-REACT PATRICIA NON-REACT PATRICIA bulletn. [facility] Index 0.06 <1.00 bulletn. [facility] Comment: HCV antibody was non-reactive. There is no laboratory evidence of HCV infection. In most cases, no further action is required. However, if recent HCV exposure is suspected, a test for HCV RNA (test code 95077) is suggested. For additional information please refer to http://education.[employer]/faq/HPE98o0 (This link is being provided for informational/ educational purposes only.) 09/24/2022 1:15 PM EST 09/24/2022 1:16 PM EST Narrative [facility] - 09/25/2022 9:00 PM EST FASTING:NO FASTING: NO [facility] LAB BLOOD ORDERABLES Final Re sult Performing Organization Address City/[facility]/ZIP Co de Phone Number [facility] [address] [place] [phone] bulletn. [place] [employer] [address], [place] [phone] * HIV-1/2 Antigen and Antibodies, Fourth Generation, with Reflexes (09/24/2022 1:15 PM EST) HIV Antigen/Antibody, 4th Generation NON-REAC TIVE NON-REAC TIVE bulletn. [facility] Comment: HIV-1 antigen and HIV-1/HIV-2 antibodies were [...] purpose. For additional information please refer to http://[employer]/faq/CDU008 (This link is being provided for informational/ educational purposes only.) The performance of this assay has not been clinically validated in patients less than 2 years old. 09/24/2022 1:15 PM EST 09/24/2022 1:16 PM EST Narrative [facility] - 09/25/2022 9:00 PM EST FASTING:NO FASTING: NO [facility] LAB BLOOD ORDERABLES Final Re sult [facility] [address] [place] [phone] bulletn. [facility] [address], [place] [address] * Lipid Panel, Standard (09/24/2022 1:15 PM EST) [facility] Signature Cholesterol, Total 128 <200 mg/dL bulletn. [facility] HDL Cholesterol 43 > OR = 40 mg/dL bulletn. [facility] Triglycerides 82 <150 mg/dL bulletn. [facility] LDL Cholesterol 69 mg/dL (calc) bulletn. [facility] Comment: Reference range: <100 Desirable range <100 mg/dL for primary prevention; <70 mg/dL for patients with CHD or diabetic patients with > or = 2 CHD risk factors. LDL-C is now calculated using the Raffi calculation, which is a validated novel method providing better accuracy than the Friedewald equation in the estimation of LDL-C. Ernesto MAY et al. GRISELDA. 2013;310(19): 6885-3520 (http://education.[employer]/faq/EPY947) Chol/HDLC Ratio 3.0 <5.0 (calc) bulletn. [facility] Non-HDL Cholesterol 85 <130 mg/dL (calc) bulletn. [facility] Comment: For patients with diabetes plus 1 major ASCVD risk factor, treating to a non-HDL-C goal of <100 mg/dL (LDL-C of <70 mg/dL) is considered a therapeutic option. 09/24/2022 1:15 PM EST 09/24/2022 1:16 PM EST Narrative [facility] - 09/25/2022 9:00 PM EST FASTING:NO FASTING: NO [facility] LAB BLOOD ORDERABLES Final Re sult [facility] [address], [place] [address] bulletn. [facility] [address], [place] [address] from Last 3 Months or Most Recently Relevant to Health Maintenance Insurance [facility] C3 HSN PARTIAL Care Teams Dental Tech Relationship Specialty Start Date End Date Becki Arias FNP [address] [place] [phone] PCP - General Family Medicine 10/08/23
--- OUTSIDE RECORDS SUMMARY | 2025-09-14 17:48 | XMS_ITS | Encounter Summary ---
Author Organization [employer] Address [address] [place] [address] Care Team Providers Care Cook Chill Technician Name Role Phone [facility] Primary Care Provider [phone] Encounter Details Date Type Department Care Team (Latest Contact Info) Description 09/14/2025 Travel Social History Tobacco Use Types Packs/Day Years [...] t he electric, gas, oil or water [employer] threatened to shut off services in your [...] AM EDT documented as of this encounter Functional Status * Over the past 2 weeks, how often have you been bothered by any of the following problems? Question Answer Date of Assessment Author Patient Health Questionnaire-2 Score 2 09/14/2025 2:46 PM Maria Luisa Colmenares MA * Little interest or pleasure in doing things Answer Date of Assessment Author Several days 09/14/2025 2:46 PM Maria Luisa Snell MA * Feeling down, depressed, or hopeless Answer Date of Assessment Author Several days 09/14/2025 2:46 PM Maria Luisa Snell MA * Trouble falling or staying asleep, [...] difficult 09/14/2025 2:46 PM EST Maria Luisa Morataya MA documented as of this encounter Plan of Treatment Not on file documented as of this encounter Visit Diagnoses Not on filedocumented in this encounter Additional Health Concerns Assessment Noted Time PHQ-9 Depression Total Score: 8 09/14/20 25 2:46 PM EST documented as of this encounter Care Teams Cook Chill Technician Relationship Specialty Start Date End Date Becki Arias FNP [address] [place] [address] PCP - General Family Medicine 10/08/23 documented as of this encounter
--- OUTSIDE RECORDS SUMMARY | 2025-09-14 17:48 | XMS_ITS | Encounter Summary ---
Author Organization [employer] Address [address] [facility] 7t [place] [address] Care Team Providers Care Process Improvement Manager Name Role Phone [facility] Primary Care Provider [phone] Drea Mansfield STOCK AND STATION AGENT Primary Care Provider [phone] [facility] Primary Care Provider [phone] Pinky Bond Unavailable Reason for Visit * Reason Comments Med Refill Encounter Details Date Type Department Care Team (Late st Contact Info) Description 08/08/2023 Refill [facility] MEDICINE [address] [place], [place] [phone] Polly Crowe DO [address] [place], [place] [phone] Primary insomnia Social History Tobacco Use Types [...] sleep documented in this encounter Care Teams Process Improvement Manager Relationship Specialty Start Date End Date [facility] [address] [place] [address] PCP - General Family Medicine 06/12/22 08/09/23 Drea Mansfield FNP [address] [place] [address] PCP - General Family Medicine 08/10/23 10/07/23 [facility] [address] [place] [address] PCP - General Family Medicine 10/08/23 Pinky Bond 04/04/25 08/30/25 documented as of this encounter
--- OUTSIDE RECORDS SUMMARY | 2025-09-14 17:49 | XMS_ITS | Clinical Summary ---
Author Organization [employer] Located Within [facility] ity Address [address] [place] [address] Care Team Providers Care Md Senior Research Scientist Name Role Phone Unavailable Primary Care Provider [...] Depression Screening 10/20/2024 COVID-19 Vaccine (1 - 2024-2 6 season) 2025 Influenza Vaccine (#1) 2025 RSV Immunization Adult Patie nts (1 - 1-dose 75+ series) 2048 HIB Vaccines Aged Out No longer eligi [...]
--- OUTSIDE RECORDS SUMMARY | 2025-09-14 17:49 | XMS_ITS | Encounter Summary ---
Author Organization [employer] Address [address] [facility] 7t [place] [address] Care Team Providers Care Deliverer Outside Name Role Phone [facility] Primary Care Provider [phone] Reason for Visit * Reason Onset Date Comments CHART PREP 09/13/2025 Encounter Details Date Type Department Care Team ([facility] st Contact Info) Description 09/13/2025 Telephone [facility] 230 [place], [place] [phone] [facility] 230 [place] [address] CHART PREP Social History Tobacco Use Types Packs/Day Years [...] encounter Miscellaneous Notes * Telephone Encounter - Sparkle Myers [place] - 09/13/2025 3:22 PM EST Chart Prep Labs: not done Images: done Referrals: complete Vaccines due: Covid, Flu, PCV20, and Zoster Screenings: colonoscopy and PISQ Overdue care gaps: SBIRT documented in this encounter Plan of Treatment Not on file documented as of this encounter Visit Diagnoses Not on filedocumented in this encounter Additional Health Concerns Assessment Noted Time PHQ-9 Depression Total Score: 8 04/25/20 3:45 PM EDT documented as of this encounter Care Teams Deliverer Outside Relationship Specialty Start Date End Date Becki Arias FNP [address] [place] [phone] PCP - General Family Medicine 10/08/23 documented as of this encounter
--- OUTSIDE RECORDS SUMMARY | 2025-09-14 17:49 | XMS_ITS | Encounter Summary ---
Author Organization [employer] Address 75 [facility] 7t [place] [address] Care Team Providers Care Care Connector Name Role Phone [place] [facility] Primary Care Provider [phone] Pinky Bond Unavailable Reason for Visit * Reason Onset Date Comments Med Refill 07/20/2025 Encounter Details Date Type Department Care Team ([facility] st Contact Info) Description 07/20/2025 Telephone [facility]INE [address] [place] [address] [facility], [facility] 230 [place], [place] [phone] Med Refill Social History Tobacco Use Types Packs/Day Years [...] Telephone Encounter - Polly Parry LPN - 07/20/2025 9:00 AM EDT Script sent to [facility] on 07/08/25 with 2 refills. * Telephone Encounter - Jim Sarmiento - 07/20/2025 8:56 AM EDT TC from pt requesting medication refill. Medications needing refill: QUEtiapine (SEROquel) 50 MG tablet To be sent to: [facility] - [place], [place] - [address] [facility] [place] documented in this encounter Plan of Treatment Not on file documented as of this encounter Visit Diagnoses Not on filedocumented in this encounter Additional Health Concerns Assessment Noted Time PHQ-9 Depression Total Score: 8 04/25/20 25 3:45 PM EDT documented as of this encounter Care Teams Care Connector Relationship Specialty Start Date End Date Becki Arias FNP [address] [place] [address] PCP - General Family Medicine 10/08/23 Pinky Bond 04/04/25 08/30/25 documented as of this encounter
[2025-09-14 18:44] LABS: Alanine Aminotransferase 48 U/L (0-40); Albumin Level 4.4 g/dL (3.5-5.0); Alkaline Phosphatase 59 U/L (39-117); Anion Gap 10 (12-20); Aspartate Amino Transferase 39 U/L (5-37); Blood Urea Nitrogen 18 mg/dL (9-16); Calcium 9.0 mg/dL (8.4-10.2); Carbon Dioxide 26 mmol/L (22-29); Chloride 107 mmol/L (96-108); Cholesterol 160 mg/dL (<200); Estimated Glomerular Filt Rate > 60; HDL Cholesterol 41 mg/dL (>40); Potassium 4.3 mmol/L (3.3-5.1); Sodium 139 mmol/L (135-145); Total Protein 7.1 g/dL (6.5-8.0); Triglycerides 100 mg/dL (<150)
[2025-09-15 05:20] LABS: Hemoglobin A1C 90.9982 umol/L
== END 2025-09-14 15:41 | disposition home or self-care (01) ==
LOC: HO.HHCL 15:40
PROVIDERS: PCP Registered Nurse; Visit Provider Registered Nurse
DX: E78.5 Hyperlipidemia, unspecified (principal)
CPT/HCPCS: 36415; 80053; 80061; 83036

== ENCOUNTER 2025-09-26 14:33 | Outpatient (REF) | payer MEDICAID, SELFPAY ==
[2025-09-26 16:17] LABS: MANUAL DIFF FLAG NO
[2025-09-26 16:27] LABS: Hematocrit 49.7 % (42.0-52.0); Hemoglobin 17.4 g/dl (14.0-18.0); Imm Gran Abs Auto 0.03 X10*3/uL (0.00-0.03); Imm Gran Pct Auto 0.5 % (0.0-0.4); Lymphocytes Absolute Auto 2.0 X10*3/uL (1.2-4.9); Mean Corpuscular HGB Conc 35.0 g/dl (31.0-36.0); Mean Corpuscular Hemoglobin 31.3 pg (27.0-33.0); Mean Corpuscular Volume 89.4 fL (80.0-98.0); NRBC Abs Auto 0.000 X10*3/uL (0.0-0.012); NRBC Pct Auto 0.0 /100WBC (0.0-0.2); Platelet Count 201 X10*3/uL (160-400); Red Blood Count 5.56 X10*6/uL (4.60-5.80); White Blood Count 6.6 X10*3/uL (4.8-10.8)
--- OUTSIDE RECORDS SUMMARY | 2025-09-26 23:42 | XMS_ITS | Encounter Summary ---
Author Organization [employer] Address 75 [facility] 7t [place] [address] Care Team Providers Care Welding Pantograph Machine Operator Name Role Phone [place] [facility] Primary Care Provider [phone] Drea Mansfield SENIOR DESIGN ENGINEERING SPECIALIST Primary Care Provider [phone] [facility] Primary Care Provider [phone] Pinky Bond Unavailable Reason for Visit * Reason Comments Med Refill Encounter Details Date Type Department Care Team (Late st Contact Info) Description 08/08/2023 Refill [facility] MEDICINE 230 [place], [place] [phone] Polly Crowe DO 230 [place], [place] [phone] Primary insomnia Social History Tobacco Use Types [...] sleep documented in this encounter Care Teams Welding Pantograph Machine Operator Relationship Specialty Start Date End Date [facility] 230 [place] [address] PCP - General Family Medicine 06/12/22 08/09/23 Drea Mansfield FNP 230 [place] [address] PCP - General Family Medicine 08/10/23 10/07/23 [place] [facility] 230 [place] [address] PCP - General Family Medicine 10/08/23 Pinky Bond 04/04/25 08/30/25 documented as of this encounter
--- OUTSIDE RECORDS SUMMARY | 2025-09-26 23:42 | XMS_ITS | Clinical Summary ---
Author Organization [employer] Address [address] [facility] 7t [place] [address] Care Team Providers Care Carburizing Furnace Operator Name Role Phone [facility] Primary Care Provider [phone] Allergies Active Allergy Reactions Criticality Noted Date [...] 18 g 1 3 Active sodium chloride (Dale Nasal Morven) 0.65 % nasal sprayIndications: Cough in adult,Acute [...] MRI from 09/2023 with anteriorlisthesis;. Followed by [facility] pain [facility] and PT Elevated blood-pressure read ing without diagnosis of hypertension 09/23/2022 Anxiety 10/23/2021 Insomnia 09/19/2021 Obstructive sleep apnea syndrome 12/22/2014 History of substance abuse (CMS/FORMER[facility]) 11/18/2013 Hyperlipidemia 11/18/2013 Impaired fasting glucose 11/18/2013 Encounters Date Type Department Care Team Description 09/19/2025 Orders Only [facility] [address] [place] [address] [facility] Elevated liver enzymes (Primary Dx) 09/19/2025 Results Follow-Up [facility] [place] [address] Becki Arias FNP Comprehensive Metabolic Panel, Hemoglobin A1c, Lipid Panel, Standard 09/14/2025 2:45 PM EST Office Visit [facility] [place] [address] Becki Arias FNP Primary hypertension (Primary Dx); Alcohol use disorder; Impaired fasting glucose; Encounter for immunization; Encounter for screening for malignant neoplasm of colon; Sleep disturbance 09/14/2025 Travel 09/13/2025 Telephone [facility] [place] [address] Becki Arias FNP CHART PREP 08/30/2025 Patient Outreach [address] [facility] [place] [address] Becki Arias FNP Care Coordination ([facility] Pinky Bond telephone call outreach) 08/12/2025 Patient Outreach [facility] [place] [address] Becki Arias FNP Pre-visit Planning (Pre-visit planning - LVM ) 07/20/2025 [address] [place] [address] Becki Arias FNP Med Refill 07/16/2025 Orders Only GENERIC EXTERNAL DATA DEPARTMENT Provider, Generic External Data 07/15/2025 Orders Only GENERIC EXTERNAL DATA DEPARTMENT Provider, Generic External Data 07/08/[address] [address] Becki Arias FNP Anxiety 07/04/2025 Patient Outreach [address] [address] Becki Arias FNP Care Coordination ([facility] Pinky Bond telephone call outreach) from Last 3 Months Immunizations Immunization Administration [...] 04/08/2026 04/08/2025 Depression Screening 09/14/2026 09/14/2025, 09/14/20 25 Tobacco Screening 09/18/2026 09/18/2025 Lipid Panel 09/14/2030 09/14/2025, 12/0 03/2022, 09/19/2021, Additional history exists DTaP/Tdap/Td Vaccines (4 - [...] Procedure Name Priority Date/Time Associated Diagnosis Comments CBC WITH AUTO DIFFERENTIAL Routine 09/26/2025 2:39 PM EST Elevated liver enzymes LIPID PANEL, STANDARD Routine 09/14/2025 3:43 PM EST Hyperlipidemia, unspecified hyperlipidemia type HEMOGLOBIN A1C Routine 09/14/2025 3:43 PM EST Hyperlipidemia, unspecified hyperlipidemia type COMPREHENSIVE METABOLIC PANEL Routine 09/14/2025 3:43 PM EST Hyperlipidemia, unspecified hyperlipidemia type URINALYSIS, COMPLETE, WITH REFLEX TO CULTURE Routine [...] GENERATION W/RFL Routine 09/24/2022 1:15 PM EST from Last 3 Months or Most Recently Relevant to Health Maintenance Results * (ABNORMAL) CBC auto differential (09/26/2025 2:39 PM EST) Only the most recent of2 resultswithin the time period is included. White Blood Count 6.6 4.8 - 10.8 X10*3/uL [facility] Red Blood Count 5.56 4.60 - 5.80 X10*6/uL [facility] Hemoglobin 17.4 14.0 - 18.0 g/dl [facility] Hematocrit 49.7 42.0 - 52.0 % [facility] Mean Corpuscular Volume 89.4 80.0 - 98.0 fL [facility] Mean Corpuscular Hemoglobin 31.3 27.0 - 33.0 pg [facility] Mean Corpuscular HGB Conc 35.0 31.0 - 36.0 g/dl [facility] Red Cell Distribution Width 11.8 11.0 - 16.0 % [facility] Platelet Count 201 160 - 400 X10*3/uL [facility] Mean Platelet Volume 10.6 9.4 - 12.4 fL [facility] Neutrophils Percent Auto 58.1 45 - 73 % [facility] Imm Gran Pct Auto 0.5(H) 0.0 - 0.4 % [facility] Lymphocytes Percent Auto 30.4 20 - 40 % [facility] Monocytes Percent Auto 6.8 2 - 11 % [facility] Eosinophils Percent Auto 3.6 0 - 4 % [facility] Basophils Percent Auto 0.6 0 - 2 % [facility] NRBC Pct Auto 0.0 0.0 - 0.2 /100WBC [facility] Neutrophils Absolute Auto 3.9 2.0 - 8.3 x10*3/uL [facility] Imm Gran Abs Auto 0.03 0.00 - 0.03 X10*3/uL [facility] Lymphocytes Absolute Auto 2.0 1.2 - 4.9 X10*3/uL [facility] Monocytes Absolute Auto 0.5 0.1 - 1.2 X10*3/uL [facility] Eosinophils Absolute Auto 0.2 0.0 - 0.4 X10*3/uL [facility] Basophils Absolute Auto 0.0 0.0 - 0.2 X10*3/uL [facility] NRBC Abs Auto 0.000 0.0 - 0.012 X10*3/uL [facility] Blood Venous blood specimen / Unknown 09/26/2025 2:39 PM EST 09/26/2025 4:07 PM EST [facility] LAB BLOOD ORDERABLES Final Re sult [facility] [address] [place] [address] [phone] * Hemoglobin A1c (09/14/2025 3:43 PM EST) Hemoglobin A1c 5.0 <6.0 % [facility] Comment:Hemoglobin A1C Refer ence Range Adults: 4.8 - 6.0 % Non diabetic: < 6.0 % Goal: < 7.0 %Additional Action Suggested: > 8.0 %Note: Hemoglobin A1c results are invalid for patients with abnormal amounts of HbF. Blood transfusions may impact the HbA1c concentration in the patient sample. Estimated Average Glucose 97 mg/dL [facility] Comment:eAG = Estimated ave rage glucose which is %A1C expressed asaverage glucose, using the formula of the H9O-QssnryqRebbmdc Glucose study (ADAG), Diabetes Care, Vol.31,#8,May. 2007 Blood Venous blood specimen / Unknown 09/14/2025 3:43 PM EST 09/14/2025 6:03 PM EST [facility] LAB BLOOD ORDERABLES Final Re sult Performing Organization Address City/[facility]/ZIP Co de Phone Number [facility] [address] [place] [phone] * Lipid Panel, Standard (09/14/2025 3:43 PM EST) Triglycerides 100 <150 mg/dL [facility] Comment:Desirable Triglyceri de: less than 150 mg/dLBorderline High Triglyceride 150-199 mg/dLHigh Triglyceride: 200-499 mg/dLVery High Triglyceride: greater than or equal to 5OO mg/dL Cholesterol 160 <200 mg/dL [facility] Comment:Desirable Cholestero l: less than 200 mg/dLBorderline High Cholesterol: 200-239 mg/dLHigh Cholesterol: greater than 239 mg/dL LDL Cholesterol Calculated 99 <100 mg/dL [facility] Comment:Desirable LDL: less than 100 mg/dLNear Optimal/Above Optimal LDL: 110- 129 mg/dLBorderline High LDL: 130-159 mg/dLHigh LDL: 160-189 mg/dLVery High LDL: greater than or equal to 190 mg/dL HDL Cholesterol 41 >40 mg/dL [facility] Comment:Desirable HDL: great er than 40 mg/dL Note: This HDL assay may give artificially low results in patients with liver disease. Blood Venous blood specimen / Unknown 09/14/2025 3:43 PM EST 09/14/2025 6:03 PM EST [facility] LAB BLOOD ORDERABLES Final Re sult Performing Organization Address City/[facility]/ZIP Co de Phone Number [facility] [address] [place] [phone] * (ABNORMAL) Comprehensive Metabolic Panel (09/14/2025 3:43 PM EST) Only the most recent of2 resultswithin the time period is included. Sodium 139 135 - 145 mmol/L [facility] Potassium 4.3 3.3 - 5.1 mmol/L [facility] Chloride 107 96 - 108 mmol/L [facility] Carbon Dioxide 26 22 - 29 mmol/L [facility] Anion Gap 10(L) 12 - 20 [facility] Urea Nitrogen (BUN) 18(H) 9 - 16 mg/dL [facility] Creatinine, Serum 0.86 0.5 - 1.4 mg/dL [facility] Estimated Glomerular Filt Rate >60 [facility] Comment:Chronic Kidney Disea se: Estimated GFR < 60 mL/min/1.40x2Kzbnkz Kidney Disease: Estimated GFR < 15 mL/min/1.73m2 Glucose 93 60 - 115 mg/dL [facility] Calcium 9.0 8.4 - 10.2 mg/dL [facility] Bilirubin, Total 0.8 0.0 - 1.0 mg/dL [facility] Aspartate Amino Transferase 39(H) 5 - 37 U/L [facility] Alanine Aminotransferase 48(H) 0 - 40 U/L [facility] Total Protein 7.1 6.5 - 8.0 g/dL [facility] Albumin Level 4.4 3.5 - 5.0 g/dL [facility] Alkaline Phosphatase 59 39 - 117 U/L [facility] Blood Venous blood specimen / Unknown 09/14/2025 3:43 PM EST 09/14/2025 6:03 PM EST [facility] LAB BLOOD ORDERABLES Final Re sult [facility] [address] [place] [address] [phone] * (ABNORMAL) Urinalysis, Complete, with Reflex to Culture (07/16/2025 1:46 AM EDT) Color Urine Yellow [facility] Appearance Urine Clear [facility] PH 6.0 5.0 - 9.0 [facility] Glucose Urine UA Negative Negative mg/dL [facility] Urine Blood Negative Negative [facility] Specific [place] - Urine >=1.030(H) 1.005 - 1.025 [facility] Urine Protein 30 (1+)(A) Neg-Trace mg/dL [facility] Urine Ketones Negative Negative mg/dL [facility] Nitrite Urine Negative Negative [facility] Leukocyte Esterase Urine Negative Negative [facility] RBC Urine 0-2 0 - 2 /HPF [facility] Urine WBC 0-5 0 - 5 /HPF [facility] Urine Squamous Epithelial Cell 0-2 0 - 2 /HPF [facility] Urine Bacteria None Seen None Seen [facility] Hyaline Casts, Urine 0-2 0 - 2 /LPF [facility] 07/16/2025 1:46 AM EDT 07/16/2025 1:51 AM EDT Narrative [facility] - 07/16/2025 2:02 AM EDT [id number], Clean Catch us Generic External Data Provider LAB URINE ORDERAB LES Final Result [facility] [address] [place] [phone] * CT Abdomen Pelvis w/ Contrast (07/16/2025 1:04 AM EDT) Anatomical Region Laterality Modality Body, Pelvis, Abdomen Computed T omography 07/16/2025 1:04 AM EDT Narrative 07/16/2025 1:05 AM EDT [address] [address] [address] Scan Report Signed Patient: Isauro Dudley MR#: [id number] : 1975 Acct:[id number] Age/Sex: 49 / M ADM Date: 07/15/25 Loc: HO.ED Attending Dr: Ordering Physician: Flor Coronado MD Date of Service: 07/16/25 Procedure(s): CT abdomen pelvis w IV con Accession Number(s): [id number] cc: Flor Coronado MD; [facility] Report Number: [id number]: Total DLP = 599.00 mGy-cm Reason for [...] This document has been electronically signed by: Marce Rider MD on 07/16/2025 01:04:11 Dictated By: Marce Rider MD Signed By: <Electronically signed by Marce Rider MD in OV> 07/16/25104 DD/ 3 TD/TT: 07/16/25103 Automation Machine Operator: Procedure Note Donotuseinterpreter, Image - 07/16/[address] [address] [address] Scan Report Signed Patient: Cuca Dudley#: [id number] : 1975Acct:[id number] Age/Sex: 49 / MADM Date: 07/15/25 Loc: .ED Attending Dr: Ordering Physician: Flor Coronado MD Date of Service: 07/16/25 Procedure(s): CT abdomen pelvis w IV con Accession Number(s): [id number] cc: Flor Coronado MD; [facility] Report Number: [id number]: Total DLP = 599.00 mGy-cm Reason for [...] This document has been electronically signed by: Marce Rider MD on 07/16/2025 01:04:11 Dictated By: Marce Rider MD Signed By: <Electronically signed by Marce Rider MD in OV> 07/16/25104 DD/ 3 TD/TT: 07/16/25103 Automation Machine Operator: [facility] External Provider IMG CT PROCEDURES Final Result * SARS-CoV-2 RNA, Influenza A/B, and RSV RNA, Ql NAAT (07/15/2025 11:17 PM EDT) Influenza A PCR NEGATIVE Negative [facility] Influenza B PCR NEGATIVE Negative [facility] Resp Syncy Virus RNA Qual PCR NEGATIVE Negative [facility] SARS COV2 PCR NEGATIVE Negative [facility] Comment:All test results mus t be [...] use by authorized laboratories.Testing performed on the [employer] GeneXpert utilizingreal-time RT-PCR.All SARS CoV2 and positive influenza A/B results arereported to [facility]. 07/15/2025 11:1 7 PM EDT 07/15/2025 11:27 PM EDT Generic External Data Provider LAB MICROBIOLOGY - GENERAL ORDERABLES Final Result Performing Organization Address [facility] de Phone Number [facility] [address] [place] [phone] * High Sensitivity Troponin I (07/15/2025 10:34 PM EDT) [facility] TROPONIN I HIGH SENSITIVITY <2.7 <3.5 - 35.0 ng/L [facility] Comment:The [place] high sens itivity Troponin-I results should beused in conjunction with other diagnostic information suchas ECG, clinical observations and information, and patientsymptoms to aid in the diagnosis of [place]. 07/15/2025 10:3 4 PM EDT 07/15/2025 11:17 PM EDT Generic External Data Provider LAB BLOOD ORDERAB LES Final Result Performing Organization Address [facility] de Phone Number [facility] [address] [place] [phone] * Hepatitis C Antibody with Reflex to HCV, RNA, Quantitative, Real-Time PCR (09/24/2022 1:15 PM EST) [facility] Hepatitis C Antibody NON-REACT PATRICIA NON-REACT PATRICIA [employer] [facility] Index 0.06 <1.00 [employer] [facility] Comment: HCV antibody was non-reactive. There is no laboratory evidence of HCV infection. In most cases, no further action is required. However, if recent HCV exposure is suspected, a test for HCV RNA (test code 50637) is suggested. For additional information please refer to http://Emair.[employer]/faq/UYS32w7 (This link is being provided for informational/ educational purposes only.) 09/24/2022 1:15 PM EST 09/24/2022 1:16 PM EST Narrative [facility] - 09/25/2022 9:00 PM EST FASTING:NO FASTING: NO [facility] LAB BLOOD ORDERABLES Final Re sult [facility] [address] [place] [address], [place] [address] [employer] [address], [place] [address] * HIV-1/2 Antigen and Antibodies, Fourth Generation, with Reflexes (09/24/2022 1:15 PM EST) Pathologist [facility] HIV Antigen/Antibody, 4th Generation NON-REAC TIVE NON-REAC TIVE [facility] [place] [employer] Comment: HIV-1 antigen and HIV-1/HIV-2 antibodies [...] purpose. For additional information please refer to http://Emair.Placely.[employer]iMetrics/faq/GQL001 (This link is being provided for informational/ educational purposes only.) The performance of this assay has not been clinically validated in patients less than 2 years old. 09/24/2022 1:15 PM EST 09/24/2022 1:16 PM EST Narrative [facility] - 09/25/2022 9:00 PM EST FASTING:NO FASTING: NO [facility] LAB BLOOD ORDERABLES Final Re sult [facility] [address], [place] [address] [facility] [place] [facility] [address], [place] [address] from Last 3 Months or Most Recently Relevant to Health Maintenance Insurance [facility] C3 HSN [address]IAL [address] [place] [phone] [place] [phone] [place] [phone] Care Teams Carburizing Furnace Operator Relationship Specialty Start Date End Date [facility] [address] [place] [address] PCP - General Family Medicine 10/08/23
--- OUTSIDE RECORDS SUMMARY | 2025-09-26 23:42 | XMS_ITS | Encounter Summary ---
Author Organization [employer] Address [address] [facility] 7[address] [place] [address] Care Team Providers Care Tool Crib Supervisor Name Role Phone [facility] Primary Care Provider [phone] Pniky Bond Unavailable Reason for Visit * Reason Onset Date Comments EAEDC Form 07/05/2024 Encounter Details Date Type Department Care Team ([facility] st Contact Info) Description 07/05/2024 Telephone [facility] MEDICINE [address] [place] [address] [facility], [facility] [address] [place], [place] [id number] EAEDC Form Social History Tobacco Use Types [...] any questions you can contact pt at [phone]. documented in this encounter Plan of Treatment Not on file documented as of this encounter Visit Diagnoses Not on filedocumented in this encounter Additional Health Concerns Assessment Noted Time PHQ-9 Depression Total Score: 0 12/26/19 9:32 AM EST documented as of this encounter Care Teams Tool Crib Supervisor Relationship Specialty Start Date End Date Becki Arias FNP [address] [place] [id number] PCP - General Family Medicine 10/08/23 Pinky Bond 04/04/25 08/30/25 documented as of this encounter
--- OUTSIDE RECORDS SUMMARY | 2025-09-26 23:42 | XMS_ITS | Encounter Summary ---
Author Organization [employer] Address [address] [facility] 7t [place] [address] Care Team Providers Care Calender Inspector Name Role Phone [facility] Primary Care Provider [phone] Pinky Bond Unavailable Reason for Visit * Reason Onset Date Comments Med Refill 07/20/2025 Encounter Details Date Type Department Care Team ([facility] st Contact Info) Description 07/20/2025 Telephone [facility] MEDICINE [address] [place] [address] [facility], [facility] [address] [place], [place] [phone] Med Refill Social History Tobacco Use Types [...] 07/20/2025 9:00 AM EDT Script sent to [facility] on 07/08/25 with 2 refills. * Telephone Encounter - Jim Sarmiento - 07/20/2025 8:56 AM EDT TC from pt requesting medication refill. Medications needing refill: QUEtiapine (SEROquel) 50 MG tablet To be sent to: [facility] - [place], [place] - [address] [facility] documented in this encounter Plan of Treatment Not on file documented as of this encounter Visit Diagnoses Not on filedocumented in this encounter Additional Health Concerns Assessment Noted Time PHQ-9 Depression Total Score: 8 04/25/20 25 3:45 PM EDT documented as of this encounter Care Teams Calender Inspector Relationship Specialty Start Date End Date Becki Arias FNP [address] [place] [id number] PCP - General Family Medicine 10/08/23 Pinky Bond 04/04/25 08/30/25 documented as of this encounter
--- OUTSIDE RECORDS SUMMARY | 2025-09-26 23:42 | XMS_ITS | Encounter Summary ---
Author Organization [employer] Address [address] [facility] [address] [place] [address] Care Team Providers Care Transaction Coordinator Name Role Phone [facility] Primary Care Provider [phone] Drea Mansfield [facility] Primary Care Provider [phone] [facility] Primary Care Provider [phone] Pinky Bond Unavailable Reason for Visit * Reason Onset Date Comments Med Refill 08/08/2023 Encounter Details Date Type Department Care Team (Late st Contact Info) Description 08/08/2023 Refill [facility] MED[facility]INE [address] [place], [place] [phone] [facility] [address] [place], [place] [phone] Primary insomnia Social History Tobacco Use Types [...] Parry LPN - 08/08/2023 10:16 AM EDT [employer] checked 08/08/23. Last seen 06/02/23. * Telephone Encounter - Mylene Liz - 08/08/2023 10:12 AM EDT Tc from pt requesting medication refill on zolpidem (Ambien) 10 MG tablet to be sent to [facility] - [place], [place] - [address] [facility] documented in this encounter Plan of Treatment Not on file documented as of this encounter Visit Diagnoses Diagnosis Primary insomnia Persistent disorder of initiating or maintaining sleep documented in this encounter Care Teams Transaction Coordinator Relationship Specialty Start Date End Date [place] FNP [address] [place] [address] PCP - General Family Medicine 06/12/22 08/09/23 Drea Mansfield FNP [address] [place] [address] PCP - General Family Medicine 08/10/23 10/07/23 [place] FNP [address] [place] [address] PCP - General Family Medicine 10/08/23 Pinky Bond 04/04/25 08/30/25 documented as of this encounter
--- OUTSIDE RECORDS SUMMARY | 2025-09-26 23:42 | XMS_ITS | Clinical Summary ---
Author Organization [email or web address] [facility] ity Address [address] [place] [address] Care Team Providers Care Rail Technician Name Role Phone Unavailable Primary Care Provider [...]
[2025-09-27 04:13] LABS: HBS Num1 0.98 mIU/mL (0-7.99); HBc Num1 0.11 S/CO (0.00-0.79); HBsAGNum1 0.51 S/CO (0.00-0.99); Hepatitis A Antibody IgM 0.18 Index (0-0.79); Hepatitis B Surface Antigen Negative (Negative); ~HepC Num1 0.14 S/CO (0.00-0.79); ~Hepatitis A Antibody IgM Nonreactive (Nonreactive); ~Hepatitis B Surface Antibody NONREACTIVE (Nonreactive); ~Hepatitis C Antibody Nonreactive (Nonreactive)
== END 2025-09-26 14:34 | disposition home or self-care (01) ==
LOC: HO.HHCL 14:33
PROVIDERS: PCP Registered Nurse; Visit Provider Registered Nurse
DX: Z11.59 Encounter for screening for other viral diseases (principal); R74.8 Abnormal levels of other serum enzymes
CPT/HCPCS: 36415; 85025; 86704; 86706; 86709; 86803; 87340